=== PATIENT | male | born 1960 | race Hispanic/Latino ===

== ENCOUNTER 2019-12-30 16:21 | Inpatient (IN) | payer BC, OTHER ==
[~2019-12-30] VITALS: Ht 170.2 cm; Wt 89.1 kg
[2019-12-30] MEDS ORDERED: SODIUM CHLORIDE 0.9% 1000ML 1,000 ML IV STA (16:50)
[2019-12-30 17:08] LABS: BASOPHILS % 0.2 % (0.0-1.0); HEMATOCRIT 41.8 % (38.2-49.6); HEMOGLOBIN 13.4 g/dL (14.0-18.0); LYMPHOCYTES # (AUTO) 1.2 (1.0-3.2); LYMPHOCYTES % 7.5 % (18.0-39.1); MEAN CORPUSCULAR HEMOGLOBIN 28.8 pg (28-32); MEAN CORPUSCULAR HGB CONC 32.1 g/dL (31-35); MEAN CORPUSCULAR VOLUME 89.9 fL (81-99); MONOCYTES # (AUTO) 1.2 (0.2-0.8); MONOCYTES % 7.5 % (4.4-11.3); NEUTROPHILS % 82.3 % (38.7-80.0); PLATELET COUNT 524 x10e3/uL (140-360); RED BLOOD COUNT 4.65 x10e6/uL (4.3-5.7); RED CELL DISTRIBUTION WIDTH 12.9 % (11.7-14.4)
[2019-12-30 17:20] LABS: INR 0.93
[2019-12-30 17:21] LABS: PARTIAL THROMBOPLASTIN TIME 28.9 seconds (23.8-35.5)
[2019-12-30 17:28] LABS: ALANINE AMINOTRANSFERASE 129 IU/L (0-55); ALBUMIN 2.8 g/dL (3.5-5.0); ALBUMIN/GLOBULIN RATIO 0.6 (0.8-2.0); ALKALINE PHOSPHATASE 136 IU/L (40-150); BLOOD UREA NITROGEN 22 mg/dL (7-26); BUN/CREATININE RATIO 30 (6-25); CARBON DIOXIDE 22 mmol/L (22-29); CHLORIDE 106 mmol/L (98-107); CREATINE KINASE 93 IU/L (30-200); CREATININE, SERUM 0.73 mg/dL (0.72-1.25); EST GLOMERULAR FILTRATION RATE > 60 ML/MIN (60-); GLUCOSE 117 mg/dL (74-118); SODIUM 140 mmol/L (136-145)
--- NOTE | 2019-12-30 18:19 | Diagnostic Imaging Report ---
EXAMINATION: CHEST SINGLE (PORTABLE) INDICATION: sob, cough, hypoxia COMPARISON: None FINDINGS: AP view TUBES and LINES: None. LUNGS/PLEURA: Lungs are well inflated. There are bilateral patchy opacities likely representing multifocal pneumonia. There is no pleural effusion or pneumothorax. HEART AND MEDIASTINUM: The cardiomediastinal silhouette is unremarkable. BONES AND SOFT TISSUES: No acute osseous lesion. Soft tissues are unremarkable. UPPER ABDOMEN: No free air under the diaphragm. IMPRESSION: Bilateral patchy opacities likely representing multifocal pneumonia. Signed by: Preet Winter MD on 12/30/2019 6:15 PM
[2019-12-30] MEDS: CEFTRIAXONE SOD 1 GM/NS 50 ML 50 ML IV SCH (20:01)
[2019-12-30] MEDS ORDERED: SODIUM CHLORIDE 0.9% 1000ML 1,000 ML ONE (20:11)
[2019-12-30] MEDS: AZITHROMYCIN 500MG/NS 250 ML 250 ML IV SCH (20:15)
--- NOTE | 2019-12-30 20:56 | Emergency Department Note ---
History of Present Illnes History of Present Illness Chief Complaint: COVID PUI History of Present Illness This is a 59 year old male N FROM HOME WITH COMPLAINTS OF SHORTNESS OF BREATH AND CHEST PAIN X 6 DAYS; PATIENT RATES PAIN 5/10, APPEARS IN NO DISTRESS, O2 SATS 84% ON ROOM AIR. HAD COVID TEST AT PCP OFFICE RECEIVED POSITIVE RESULT ON WEDNESDAY. Historian: Patient Arrival Mode: Car Onset (how long ago): day(s) (7) Location: CHEST Quality: COUGH, CHEST PAIN Radiation: Reports non-radiation Severity: moderate Onset quality: gradual Duration (how long): day(s) (6) Progression: worsening Chronicity: new Context: Reports recent illness (COVID 19) Relieving factors: none Exacerbating factors: movement, other (COUGH) Associated symptoms: Reports chest pain, Reports cough, Reports fever/chills Treatments prior to arrival: none Past Medical/Family History Physician Review I have reviewed the patient's past medical and family history. Any updates have been documented here. Past Medical History Recent Fever: No Clinical Suspicion of Infectio: Yes New/Unexplained Change in Ment: No Past Medical History: None, Hypertension, Hyperlipedemia Past Surgical History: Hip Replacement Social History Smoking Cessation: Former smoker Counseling Performed: No Alcohol Use: None Any Illegal Drug Use: No Physically hurt or threatened: No Other Any Pre-Existing Lines (PICC,: No Review of Systems Review of Systems Constitutional: Reports no symptoms EENTM: Reports no symptoms Cardiovascular: Reports as per HPI Respiratory: Reports as per HPI Gastrointestinal: Reports no symptoms Genitourinary: Reports no symptoms Musculoskeletal: Reports no symptoms Integumentary: Reports no symptoms Neurological: Reports no symptoms Psychological: Reports no symptoms Endocrine: Reports no symptoms Hematological/Lymphatic: Reports no symptoms Physical Exam Related Data Allergies: Coded Allergies: No Known Allergies (Unverified , 12/30/19) Triage Vital Signs Vital Signs Date Time Temp Pulse Resp B/P (MAP) Pulse Ox O2 Delivery O2 Flow Rate FiO2 12/30/19 16:36 98.3 78 24 133/73 84 Room Air 12/30/19 17:00 4.0 Vital signs reviewed: Yes Physical Exam CONSTITUTIONAL Constitutional: Present well-developed, Present well-nourished, Present distressed (MILD RESPIRATORY DISTRESS, T[place]A RR 29) HENT HENT: Present normocephalic, Present atraumatic, Present oropharynx clear/moist, Present nose normal HENT L/R: Present left ext ear normal, Present right ext ear normal EYES Eyes: Reports PERRL, Reports conjunctivae normal NECK Neck: Present ROM normal PULMONARY Pulmonary: Present effort normal, Present rhonchi (THROUGHOUT) CARDIOVASCULAR Cardiovascular: Present regular rhythm, Present heart sounds normal, Present capillary refill normal, Present normal rate GASTROINTESTINAL Abdominal: Present soft, Present nontender, Present bowel sounds normal GENITOURINARY Genitourinary: Present exam deferred SKIN Skin: Present warm, Present dry MUSCULOSKELETAL Musculoskeletal: Present ROM normal NEUROLOGICAL Neurological: Present alert, Present oriented x 3, Present no gross motor or sensory deficits PSYCHOLOGICAL Psychological: Present mood/affect normal, Present judgement normal Results Laboratory Result Diagram: 12/30/19 1653 12/30/19 1653 Laboratory Laboratory Tests Test 12/30/19 20:04 12/30/19 16:53 White Blood Count 15.76 x10e3/uL (4.8-10.8) Red Blood Count 4.65 x10e6/uL (4.3-5.7) Hemoglobin 13.4 g/dL (14.0-18.0) Hematocrit 41.8 % (38.2-49.6) Mean Corpuscular Volume 89.9 fL (81-99) Mean Corpuscular Hemoglobin 28.8 pg (28-32) Mean Corpuscular Hemoglobin Concent 32.1 g/dL (31-35) Red Cell Distribution Width 12.9 % (11.7-14.4) Platelet Count 524 x10e3/uL (140-360) Neutrophils (%) (Auto) 82.3 % (38.7-80.0) Lymphocytes (%) (Auto) 7.5 % (18.0-39.1) Monocytes (%) (Auto) 7.5 % (4.4-11.3) Eosinophils (%) (Auto) 0.0 % (0.0-6.0) Basophils (%) (Auto) 0.2 % (0.0-1.0) Neutrophils # (Auto) 13.0 (2.1-6.9) Lymphocytes # (Auto) 1.2 (1.0-3.2) Monocytes # (Auto) 1.2 (0.2-0.8) Eosinophils # (Auto) 0.0 (0.0-0.4) Basophils # (Auto) 0.0 (0.0-0.1) Absolute Immature Granulocyte (auto 0.39 x10e3/uL (0-0.1) Prothrombin Time 13.0 seconds (11.9-14.5) Prothromb Time International Ratio 0.93 Activated Partial Thromboplast Time 28.9 seconds (23.8-35.5) Sodium Level 140 mmol/L (136-145) Potassium Level 4.0 mmol/L (3.5-5.1) Chloride Level 106 mmol/L (98-107) Carbon Dioxide Level 22 mmol/L (22-29) Anion Gap 16.0 mmol/L (8-16) Blood Urea Nitrogen 22 mg/dL (7-26) Creatinine 0.73 mg/dL (0.72-1.25) Estimat Glomerular Filtration Rate > 60 ML/MIN (60-) BUN/Creatinine Ratio 30 (6-25) Glucose Level 117 mg/dL (74-118) Calcium Level 9.0 mg/dL (8.4-10.2) Total Bilirubin 0.5 mg/dL (0.2-1.2) Aspartate Amino Transf (AST/SGOT) 47 IU/L (5-34) Alanine Aminotransferase (ALT/SGPT) 129 IU/L (0-55) Alkaline Phosphatase 136 IU/L (40-150) Creatine Kinase 93 IU/L (30-200) Creatine Kinase MB 1.10 ng/mL (0-5.0) Troponin I < 0.001 ng/mL (0-0.300) B-Type Natriuretic Peptide 76.0 pg/mL (0-100) Total Protein 7.5 g/dL (6.5-8.1) Albumin 2.8 g/dL (3.5-5.0) Globulin 4.7 g/dL (2.3-3.5) Albumin/Globulin Ratio 0.6 (0.8-2.0) Lab results reviewed: Yes Imaging Imaging results reviewed: Yes Impressions Procedure: [id number] DX/CHEST SINGLE (PORTABLE) Exam Date: 12/30/19 Exam Time: 1740 REPORT STATUS: Signed EXAMINATION: CHEST SINGLE (PORTABLE) INDICATION: sob, cough, hypoxia COMPARISON: None FINDINGS: AP view TUBES and LINES: None. LUNGS/PLEURA: Lungs are well inflated. There are bilateral patchy opacities likely representing multifocal pneumonia. There is no pleural effusion or pneumothorax. HEART AND MEDIASTINUM: The cardiomediastinal silhouette is unremarkable. BONES AND SOFT TISSUES: No acute osseous lesion. Soft tissues are unremarkable. UPPER ABDOMEN: No free air under the diaphragm. IMPRESSION: Bilateral patchy opacities likely representing multifocal pneumonia. Signed by: Preet Joaquin MD on 12/30/2019 6:15 PM Dictated By: PREET JOAQUIN MD 14 Transcribed By: ABIOLA on 12/30/191814 COPY TO: VENKATA BIGGS MD~ Procedures 12 Lead ECG Interpretation ECG Interpretation : ECG: ECG 1 Produce Sorter: Interpreted by ED physician Date: Dec 30, 2019 Time: 19:01 Rhythm: sinus rhythm Rate: normal BPM: 82 QRS axis: normal ST segments normal: Yes T waves normal: Yes Other findings: no other findings Clinical Impression: normal ECG Assessment & Plan Medical Decision Making MDM PT WITH OUTPT POSITIVE COVID 19 TEST WITH SOB AND OXYGEN SATURATION OF 85% ON ROOM, PLACED ON 6 LPM VIA NC AND O2 SATS INCREASES TP 95% CBC, CMP, CXR, CARDIAC ENZYMES. COVID, BLOOD CULTURES ORDERED TO EVAL FOR ELECTROLYTE ABNORMALITY, MYOCARDIAL INFARCTION, VIRAL PNEUMONIA ROCEPHIN 1 GRAM IV ORDERED ZITHROMAX 500 MG IV ORDERED I SPOKE WITH DR MCKEON, DR LOPEZ, DR MCLEOD,ADMIT PT TO INPATIENT FLOOR COVID UNIT Assessment & Plan Final Impression: (1) COVID-19 (2) Viral pneumonia (3) Hypoxemia requiring supplemental oxygen Depart Disposition: ADMITTED Last Vital Signs Date Time Temp Pulse Resp B/P (MAP) Pulse Ox O2 Delivery O2 Flow Rate FiO2 12/30/19 20:00 56 29 137/82 96 12/30/19 17:00 4.0 12/30/19 16:36 98.3 Room Air Medications in the ED Sodium Chloride 1,000 ml @ 0 mls/hr Q0M STAT IV Last administered on 12/30/19at 20:15; Admin Dose 999 MLS/HR; Start 12/30/19 at 16:50; Stop 12/30/19 at 16:53; Status DC Ceftriaxone Sodium 50 ml @ 100 mls/hr Q24H IV Last administered on 12/30/19at 20:01; Admin Dose 100 MLS/HR; Start 12/30/19 at 18:00; Stop 01/06/20 at 17:59 Azithromycin 250 ml @ 200 mls/hr Q24H IV Last administered on 12/30/19at 20:15; Admin Dose 200 MLS/HR; Start 12/30/19 at 17:00; Stop 01/06/20 at 16:59 Sodium Chloride 1,000 ml @ STK-MED ONCE .ROUTE ; Start 12/30/19 at 20:11; Stop 12/30/19 at 20:05; Status DC JOSE LAURENT MD Dec 30, 2019 20:56
[2019-12-30] MEDS ORDERED: AZITHROMYCIN 500MG/NS 250 ML 250 ML IV SCH (21:00)
[2019-12-30] MEDS ORDERED: ONDANSETRON HCL INJ 2MG/ML 2ML 2 MG/ML VIAL IV PRN (21:00)
[2019-12-30] MEDS ORDERED: DEXAMETHASONE SOD PHOS 10 MG/1 ML VIAL IV SCH (21:00)
[2019-12-30] MEDS ORDERED: CEFTRIAXONE SOD 1 GM/NS 50 ML 50 ML IV SCH (21:00)
[2019-12-30] MEDS ORDERED: ZOLPIDEM TARTRATE 5 MG TAB PO PRN (21:15)
[2019-12-30] MEDS ORDERED: GUAIFENESIN/CODEINE 10 ML CUP PO PRN (21:15)
[2019-12-30] MEDS ORDERED: HYDRALAZINE HCL 20 MG/ML VIAL IV PRN (21:30)
--- NOTE | 2019-12-30 21:38 | Consultation ---
DATE OF CONSULTATION: Pulmonary Critical Care Consultation CHIEF COMPLAINT: Cough, chest discomfort and dyspnea. HISTORY OF PRESENT ILLNESS: This is a 59-year-old man. He has a history of kidney stones in the past. About 7 to 10 detained days ago he noticed some flank pain and some blood in the urine. He went to see Dr. Julio Davis regarding his hematuria and had a COVID test that was positive. Over the past 5 or 6 days, he has developed worsening cough and congestion. He has noted some pain with inspiration as well as some fevers. PAST SURGICAL HISTORY: Hip surgery. PAST MEDICAL HISTORY: 1. Nephrolithiasis. 2. No prior asthma or respiratory problems. 3. No prior heart problems. SOCIAL HISTORY: The patient is not a smoker. He was a smoker about 30 or 40 years ago. He is not an active drinker. ALLERGIES: NO KNOWN DRUG ALLERGIES. REVIEW OF SYSTEMS: The patient has some fevers. He has no headache. He has no neck pain. He is not complaining of any chest pain. He does have some pain with inspiration. He notes a cough. He has some dyspnea. He has pain on the right flank area that has resolved. He has no abdominal pain. He has no nausea or vomiting. He has no leg edema. PHYSICAL EXAMINATION: VITAL SIGNS: The patient is afebrile. The blood pressure is 137/82, saturation is 96%. HEENT: Shows no facial swelling or erythema. LYMPHATIC: Shows no submandibular, cervical or supraclavicular adenopathy. CARDIAC: Reveals regular rate and rhythm with normal S1 and S2. LUNGS: Auscultation of lungs reveals rhonchorous breath sounds bilaterally. There is no wheezing. ABDOMEN: Soft, nontender. There is no rebound or guarding. EXTREMITIES: Shows no leg edema or calf tenderness. There is no cyanosis or clubbing. SKIN: Shows no rashes. NEUROLOGIC: Shows no focal abnormalities. LABORATORY DATA: White blood cell count 15.7, hemoglobin is 13.4. The platelet count is 524. BUN to creatinine ratio is normal. Other electrolytes are within normal limits. RADIOGRAPHIC DATA: Chest x-ray shows bilateral patchy infiltrates. IMPRESSION: 1. Viral pneumonia and coronavirus disease-19 infection. 2. Nephrolithiasis. PLAN: 1. Dexamethasone daily for 10 days. 2. Zithromax and Rocephin. 3. Urology consultation for nephrolithiasis. 4. Oxygen. 5. Judicious use of IV fluids. MD VIOLA Huitron/SEAN /[id number]
[2019-12-30 21:52] LABS: CLARITY,URINE CLEAR (CLEAR); COLOR,URINE YELLOW (YELLOW)
[2019-12-30 21:53] LABS: BILIRUBIN,URINE NEGATIVE (NEGATIVE); KETONES,URINE NEGATIVE (NEGATIVE); LEUKOCYTE ESTERASE ,URINE NEGATIVE (NEGATIVE); NITRITE,URINE NEGATIVE (NEGATIVE); PROTEIN,URINE DIPSTICK NEGATIVE (NEGATIVE); URINE UROBILINOGEN 0.2 mg/dL (0.2 - 1)
[2019-12-30 21:54] LABS: BACTERIA,URINE RARE /HPF; EPITHELIAL CELLS,URINE FEW /LPF; RBC,URINE 0-5 /HPF (0-5); WBC,URINE (MAN) 0-5 /HPF (0-5)
[2019-12-30 22:52] VITALS: BP 147/80
--- NOTE | 2019-12-30 23:50 | NUR ---
Patient received via stretcher from ER. AAO x 3. Patient had no complaints of pain. Respirations even and non-labored on 5L NC. Admission history obtained. Initial physical assessment performed. Patient oriented to room, call light and plan of care. Safety measures in place. Patient instructed to call for assistance when needed. Call light within reach.
[2019-12-31] VITALS (8 sets, daily range): BP systolic 113–147; BP diastolic 58–81
[2019-12-31] MEDS ORDERED: CRESTOR10 MG PO (00:24)
[2019-12-31] MEDS ORDERED: DIOVAN160 MG PO (00:24)
--- NOTE | 2019-12-31 01:42 | NUR ---
Blood specimen sent to lab for analysis of cardiac enzymes.
[2019-12-31 02:43] LABS: CREATINE KINASE MB 0.7 ng/mL (0-5.0)
[2019-12-31 05:26] LABS: BASOPHILS % 0.2 % (0.0-1.0); HEMATOCRIT 38.3 % (38.2-49.6); HEMOGLOBIN 12.3 g/dL (14.0-18.0); LYMPHOCYTES # (AUTO) 1.5 (1.0-3.2); LYMPHOCYTES % 10.7 % (18.0-39.1); MEAN CORPUSCULAR HEMOGLOBIN 28.9 pg (28-32); MEAN CORPUSCULAR HGB CONC 32.1 g/dL (31-35); MEAN CORPUSCULAR VOLUME 89.9 fL (81-99); MONOCYTES # (AUTO) 0.9 (0.2-0.8); MONOCYTES % 6.7 % (4.4-11.3); NEUTROPHILS # (AUTO) 11.3 (2.1-6.9); NEUTROPHILS % 80.8 % (38.7-80.0); PLATELET COUNT 423 x10e3/uL (140-360); RED BLOOD COUNT 4.26 x10e6/uL (4.3-5.7); RED CELL DISTRIBUTION WIDTH 12.8 % (11.7-14.4)
[2019-12-31 06:29] LABS: ALANINE AMINOTRANSFERASE 99 IU/L (0-55); ALBUMIN 2.5 g/dL (3.5-5.0); ALBUMIN/GLOBULIN RATIO 0.7 (0.8-2.0); ALKALINE PHOSPHATASE 114 IU/L (40-150); ANION GAP 11.9 mmol/L (8-16); BLOOD UREA NITROGEN 22 mg/dL (7-26); BUN/CREATININE RATIO 29 (6-25); CALCIUM 8.3 mg/dL (8.4-10.2); CARBON DIOXIDE 22 mmol/L (22-29); CHLORIDE 109 mmol/L (98-107); CREATININE, SERUM 0.76 mg/dL (0.72-1.25); EST GLOMERULAR FILTRATION RATE > 60 ML/MIN (60-); GLUCOSE 78 mg/dL (74-118); POTASSIUM 3.9 mmol/L (3.5-5.1); SODIUM 139 mmol/L (136-145)
--- NOTE | 2019-12-31 06:36 | NUR ---
Dr. Ahn paged regarding "Routine Consult'. Spoke to Marie . Awaiting call back.
--- NOTE | 2019-12-31 06:37 | NUR ---
Dr. Dana Del Rio paged regarding "Routine Consult". Reason: Nephrolithiasis. Awaiting calll back.
--- NOTE | 2019-12-31 06:53 | NUR ---
Walking rounds done. Patient resting comfortably. Shift report given to oncoming nurse.
--- NOTE | 2019-12-31 07:00 | NUR ---
change of shift report received from PM nurse. pt resting comfortably, no s/s distress. will continue to monitor.
[2019-12-31 07:28] LABS: CREATINE KINASE MB 0.6 ng/mL (0-5.0)
[2019-12-31] MEDS: ASCORBIC ACID 500 MG TAB PO SCH ×2 (09:30→16:07)
[2019-12-31] MEDS: ZINC SULFATE 220 MG CAP PO SCH ×2 (09:30→16:07)
[2019-12-31] MEDS: CHOLECALCIFEROL 400 UNIT TAB PO SCH (09:30)
[2019-12-31] MEDS: ENOXAPARIN INJ 80 MG/0.8 ML SYR SC SCH ×2 (09:30→16:07)
[2019-12-31] MEDS ORDERED: ACETAMINOPHEN/CODEINE 300MG - 30MG TAB PO PRN (10:15)
[2019-12-31] MEDS: VALSARTAN 80 MG TAB PO SCH (12:01)
[2019-12-31] MEDS: BENZONATATE 100 MG CAP PO PRN ×2 (12:02→21:00)
--- NOTE | 2019-12-31 12:15 | Consultation ---
DATE OF CONSULTATION: 12/31/2019 Urology Consultation REASON FOR CONSULTATION: Urolithiasis and hematuria. HISTORY OF PRESENT ILLNESS: Jay Jay Osborn is a 59-year-old man, who has had recurrent urolithiasis, usually passes the stones. The family is unaware at this time whether or not he seen a urologist in the past. The patient had gross hematuria and some malaise, and reported his primary care physician on 12/25/2019, he was evaluated, tests were done including the Coronavirus test. On 12/28/2019, the Coronavirus came positive. The patient had shortness of breath and chest pain, and was subsequently instructed to report to the emergency room for admission. He was admitted to the COVID morales. He has had cough. He has had malaise. He did have fevers, that seemed to have resolved at this point. His gross hematuria has also resolved. Denies any hematuria, dysuria, and urological pain at the present time. PAST MEDICAL AND SURGICAL HISTORY: 1. Hypertension. 2. Hyperlipidemia. 3. Status post right hip surgery. 4. Urolithiasis. 5. Obesity. FAMILY HISTORY: Noncontributory to the urological problems. The family history is positive for diabetes mellitus. SOCIAL HISTORY: The patient denies smoking and drug use. He drinks ethanol only very rarely and only on special occasions. 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 CURRENT MEDICATIONS: Please refer to the MAR. ALLERGIES: NONE KNOWN. REVIEW OF SYSTEMS: Discussed as above in history of present illness and past medical history, otherwise negative for all systems. PHYSICAL EXAMINATION: GENERAL: A pleasant 59-year-old male lying in bed, in no apparent distress. VITAL SIGNS: He is currently afebrile. Vitals are currently stable. ABDOMEN: Soft, nondistended, nontender without costovertebral tenderness. Kidneys not palpable without evidence of the splenomegaly. No obvious evidence of hernia. The patient is obese. GENITOURINARY: Testes descended bilaterally. Testes and epididymides bilaterally palpably normal. The patient has a normal uncircumcised male phallus with normal meatus without any lesion. Digital rectal examination is deferred at the present time. For the remaining physical examination systems, please refer to the admission history and physical on the chart. LABORATORY STUDIES: The patient's urinalysis significant for concentrated urine with specific gravity 1.030, was otherwise unremarkable. The patient's calcium is slightly low at 8.3. His creatinine is normal at 0.76. White blood cell count is elevated 14,020, hemoglobin is low at 12.3, and platelets are normal at 423,000. Current COVID test is positive. COVID test from December 24 was positive. There is no urological significant imaging present in the computer at this time. The patient has bilateral patchy opacities, representing multifocal pneumonia on his chest x-ray. ASSESSMENT: 1. Gross hematuria. 2. Leukocytosis. 3. Anemia. 4. Hypocalcemia. 5. History of recurrent urolithiasis. 6. Obesity. PLANS: 1. Treat the COVID. 2. Once the patient is COVID negative, we will pursue metabolic stone workup as well as an imaging stone workup to evaluate the patient for any stones and management on an ongoing basis. 3. Currently, the patient does not have hematuria. We will monitor for recurrence of that symptomatology. Thank you much for involving us in care of your patient. We will be happy to follow along with you as well as an outpatient. Ryan Del Rio MD [place]/MODL /[id number] cc: Julio Davis MD
[2019-12-31 15:38] LABS: CREATINE KINASE 56 IU/L (30-200)
--- NOTE | 2019-12-31 16:06 | Progress Note ---
DATE: SUBJECTIVE: The patient still has some dyspnea with exertion. He still has some congestion and cough. PHYSICAL EXAMINATION: VITAL SIGNS: Blood pressure is 126/73 and O2 saturation is 93% on 6 L. HEENT: Shows no facial swelling or erythema. CARDIAC: Reveals regular rate and rhythm with normal S1, S2. LUNGS: Auscultation of lungs revealed rhonchorous breath sounds bilaterally. There is no wheezing. ABDOMEN: Soft and nontender. There is no rebound or guarding. EXTREMITIES: Shows no leg edema or calf tenderness. There is no cyanosis or clubbing. SKIN: Shows no rashes. IMPRESSION: 1. Viral pneumonia and COVID-19 infection. 2. Nephrolithiasis. PLAN: 1. Complete antibiotics. 2. Complete dexamethasone. 3. Wean oxygen. Wilbur Barker MD [facility] /[id number]
[2019-12-31] MEDS: CEFTRIAXONE SOD 1 GM/NS 50 ML 50 ML IV SCH (16:07)
[2019-12-31] MEDS ORDERED: SODIUM CHLORIDE 0.9% 250ML 250 ML ONE (16:28)
--- NOTE | 2019-12-31 17:12 | NUR ---
received call from telemetry, pt's O2 sats 87%. Pt initially at 6L; increased to 8L. now satting 92% on 8L. will continue to monitor.
--- NOTE | 2019-12-31 18:23 | NUR ---
received call from Telemetry, pt's O2 sats 87%; pt changed to High-flow NC and put on 15L. O2 sats now 94%. will continue to monitor.
[2019-12-31] MEDS: AZITHROMYCIN 500MG/NS 250 ML 250 ML IV SCH (18:25)
[2019-12-31] MEDS: SIMVASTATIN 20 MG TAB PO SCH (21:36)
[2019-12-31] MEDS: DEXAMETHASONE SOD PHOS 10 MG/1 ML VIAL IV SCH (21:36)
[2020-01-01] VITALS (10 sets, daily range): BP systolic 105–120; BP diastolic 65–82
[2020-01-01] MEDS: ACETAMINOPHEN 325 MG TAB PO PRN ×2 (00:30→16:43)
[2020-01-01 05:39] LABS: BASOPHILS % 0.2 % (0.0-1.0); HEMATOCRIT 38.8 % (38.2-49.6); HEMOGLOBIN 12.5 g/dL (14.0-18.0); LYMPHOCYTES # (AUTO) 0.9 (1.0-3.2); LYMPHOCYTES % 7.1 % (18.0-39.1); MEAN CORPUSCULAR HEMOGLOBIN 28.8 pg (28-32); MEAN CORPUSCULAR HGB CONC 32.2 g/dL (31-35); MEAN CORPUSCULAR VOLUME 89.4 fL (81-99); MONOCYTES # (AUTO) 0.6 (0.2-0.8); MONOCYTES % 4.4 % (4.4-11.3); NEUTROPHILS # (AUTO) 11.1 (2.1-6.9); NEUTROPHILS % 86.7 % (38.7-80.0); PLATELET COUNT 423 x10e3/uL (140-360); RED BLOOD COUNT 4.34 x10e6/uL (4.3-5.7); RED CELL DISTRIBUTION WIDTH 12.7 % (11.7-14.4)
[2020-01-01 06:17] LABS: ALANINE AMINOTRANSFERASE 66 IU/L (0-55); ALBUMIN 2.3 g/dL (3.5-5.0); ALBUMIN/GLOBULIN RATIO 0.5 (0.8-2.0); ALKALINE PHOSPHATASE 103 IU/L (40-150); ANION GAP 11.3 mmol/L (8-16); BLOOD UREA NITROGEN 19 mg/dL (7-26); BUN/CREATININE RATIO 25 (6-25); CALCIUM 8.6 mg/dL (8.4-10.2); CARBON DIOXIDE 23 mmol/L (22-29); CHLORIDE 107 mmol/L (98-107); CREATININE, SERUM 0.77 mg/dL (0.72-1.25); EST GLOMERULAR FILTRATION RATE > 60 ML/MIN (60-); GLUCOSE 105 mg/dL (74-118); POTASSIUM 4.3 mmol/L (3.5-5.1); SODIUM 137 mmol/L (136-145)
--- NOTE | 2020-01-01 07:22 | NUR ---
infectious disease progress note Late entry is 12/31/2019 Patient seen and examined chart reviewed please refer to weigh orders in chart. Discussed with the medical team he patient still has some dyspnea with exertion. He still has some congestion and cough. PHYSICAL EXAMINATION: VITAL SIGNS: Blood pressure is 126/73 and O2 saturation is 93% on 6 L. HEENT: Shows no facial swelling or erythema. CARDIAC: Reveals regular rate and rhythm with normal S1, S2. LUNGS: Auscultation of lungs revealed rhonchorous breath sounds bilaterally. There is no wheezing. ABDOMEN: Soft and nontender. There is no rebound or guarding. EXTREMITIES: Shows no leg edema or calf tenderness. There is no cyanosis or clubbing. SKIN: Shows no rashes. IMPRESSION: 1. Viral pneumonia and COVID-19 infection. 2. Nephrolithiasis. PLAN: Continue as ordered D supportive care
[2020-01-01] MEDS: ENOXAPARIN INJ 80 MG/0.8 ML SYR SC SCH (08:23)
[2020-01-01] MEDS: ASCORBIC ACID 500 MG TAB PO SCH ×2 (08:23→16:16)
[2020-01-01] MEDS: VALSARTAN 80 MG TAB PO SCH (08:23)
[2020-01-01] MEDS: CHOLECALCIFEROL 400 UNIT TAB PO SCH (08:23)
[2020-01-01] MEDS: ZINC SULFATE 220 MG CAP PO SCH ×2 (08:23→16:16)
--- NOTE | 2020-01-01 14:05 | Progress Note ---
DATE: SUBJECTIVE: Mr. Osborn is doing well. PHYSICAL EXAMINATION: GENERAL: Currently alert. VITAL SIGNS: Stable, currently afebrile. HEENT: Not icteric. NECK: Supple. CHEST: Clear. IMPRESSION: COVID-19, nephrolithiasis, stable. He is on 15 L. Continue Decadron, to finish antibiotic as ordered. Continue Lovenox. Continue oxygen as ordered. MD SHAILESH Velasco/MODL /[id number]
[2020-01-01] MEDS: AZITHROMYCIN 500MG/NS 250 ML 250 ML IV SCH (16:16)
--- NOTE | 2020-01-01 16:16 | Progress Note ---
DATE: SUBJECTIVE: Mr. Osborn is doing well. There are no new complaints. PHYSICAL EXAMINATION: GENERAL: Currently alert. VITAL SIGNS: Stable, currently afebrile. The patient is currently on 15 L still. HEENT: He is not icteric. NECK: Supple. CHEST: Clear. IMPRESSION: Coronavirus disease 2019, respiratory failure, nephrolithiasis. Continue oxygen as ordered. Continue Lovenox, Zocor, dexamethasone, azithromycin for 3 days, Rocephin for 5 days. We will follow. MD SHAILESH Velasco/MODL /[id number]
[2020-01-01] MEDS: BENZONATATE 100 MG CAP PO PRN (16:43)
--- NOTE | 2020-01-01 17:24 | NUR ---
Physical therapy screen completed, patient is able to ambulate inside room with out assistance, able to perform bed mobility and transfers with out assistance.Skilled physical therapy services not indicated at this time. Thank you Addendum: 01/01/20 at 1726 by Mu lopez PT Amended: Links added.
[2020-01-01] MEDS: CEFTRIAXONE SOD 1 GM/NS 50 ML 50 ML IV SCH (17:27)
[2020-01-01] MEDS: SIMVASTATIN 20 MG TAB PO SCH (20:22)
[2020-01-01] MEDS: DEXAMETHASONE SOD PHOS 10 MG/1 ML VIAL IV SCH (20:22)
[2020-01-01] MEDS: ENOXAPARIN 30 MG/0.3 ML SYR SC SCH (20:22)
[2020-01-01] MEDS ORDERED: ENOXAPARIN INJ 80 MG/0.8 ML SYR SC SCH (21:00)
[2020-01-02] VITALS (7 sets, daily range): BP systolic 101–112; BP diastolic 62–76
[2020-01-02 05:49] LABS: BASOPHILS % 0.1 % (0.0-1.0); HEMATOCRIT 36.4 % (38.2-49.6); HEMOGLOBIN 12.6 g/dL (14.0-18.0); LYMPHOCYTES # (AUTO) 0.6 (1.0-3.2); LYMPHOCYTES % 5.2 % (18.0-39.1); MEAN CORPUSCULAR HEMOGLOBIN 32.6 pg (28-32); MEAN CORPUSCULAR HGB CONC 34.6 g/dL (31-35); MEAN CORPUSCULAR VOLUME 94.3 fL (81-99); MONOCYTES # (AUTO) 0.3 (0.2-0.8); MONOCYTES % 2.3 % (4.4-11.3); NEUTROPHILS # (AUTO) 9.6 (2.1-6.9); NEUTROPHILS % 90.2 % (38.7-80.0); PLATELET COUNT 325 x10e3/uL (140-360); RED BLOOD COUNT 3.86 x10e6/uL (4.3-5.7); RED CELL DISTRIBUTION WIDTH 15.1 % (11.7-14.4)
[2020-01-02 06:17] LABS: ALANINE AMINOTRANSFERASE 54 IU/L (0-55); ALBUMIN 2.3 g/dL (3.5-5.0); ALBUMIN/GLOBULIN RATIO 0.5 (0.8-2.0); ALKALINE PHOSPHATASE 88 IU/L (40-150); ANION GAP 14.7 mmol/L (8-16); BLOOD UREA NITROGEN 23 mg/dL (7-26); BUN/CREATININE RATIO 30 (6-25); CALCIUM 8.9 mg/dL (8.4-10.2); CARBON DIOXIDE 22 mmol/L (22-29); CHLORIDE 106 mmol/L (98-107); CREATININE, SERUM 0.76 mg/dL (0.72-1.25); EST GLOMERULAR FILTRATION RATE > 60 ML/MIN (60-); GLUCOSE 130 mg/dL (74-118); POTASSIUM 4.7 mmol/L (3.5-5.1); SODIUM 138 mmol/L (136-145)
--- NOTE | 2020-01-02 07:44 | Diagnostic Imaging Report ---
EXAMINATION: CHEST SINGLE (PORTABLE) INDICATION: COVID COMPARISON: Chest radiograph 12-30-2019. FINDINGS: AP view TUBES and LINES: None. LUNGS/PLEURA: Lungs are well inflated. There are increasing bilateral peripheral predominant patchy airspace opacities. There is no pleural effusion or pneumothorax. HEART AND MEDIASTINUM: The cardiomediastinal silhouette is unremarkable. BONES AND SOFT TISSUES: No acute osseous lesion. Soft tissues are unremarkable. UPPER ABDOMEN: No free air under the diaphragm. IMPRESSION: Increasing bilateral patchy opacities, compatible with viral pneumonia. Signed by: Dr. Jennie De Leon MD on 01/02/2020 7:40 AM
[2020-01-02 08:58] LABS: ANISOCYTOSIS SLIGHT; LYMPHOCYTES % (MANUAL) 10 % (19-48); MONOCYTES % (MANUAL) 3 % (3.4-9.0); MYELOCYTES % (MANUAL) 2 % (0-0); NEUTROPHILS % (MANUAL) 85 % (40-74); PLATELET ESTIMATE ADEQUATE; PLATELET MORPHOLOGY COMMENT NORMAL; RBC MORPHOLOGY COMMENT NORMAL
[2020-01-02] MEDS: ZINC SULFATE 220 MG CAP PO SCH ×2 (09:04→16:20)
[2020-01-02] MEDS: ASCORBIC ACID 500 MG TAB PO SCH ×2 (09:04→16:20)
[2020-01-02] MEDS: VALSARTAN 80 MG TAB PO SCH (09:04)
[2020-01-02] MEDS: ENOXAPARIN 30 MG/0.3 ML SYR SC SCH ×2 (09:04→19:50)
[2020-01-02] MEDS: CHOLECALCIFEROL 400 UNIT TAB PO SCH (09:04)
--- NOTE | 2020-01-02 16:02 | NUR ---
patient was sick for 10 days before hecame here now is better discussed with kamla had positive test week ago cont isolation 20 days
[2020-01-02] MEDS: AZITHROMYCIN 500MG/NS 250 ML 250 ML IV SCH (16:20)
[2020-01-02] MEDS: CEFTRIAXONE SOD 1 GM/NS 50 ML 50 ML IV SCH (18:06)
--- NOTE | 2020-01-02 18:52 | Progress Note ---
DATE: SUBJECTIVE: Mr. Osborn has PCR on the came back negative. He is currently doing well. PHYSICAL EXAMINATION: GENERAL: He is currently alert. VITAL SIGNS: Stable. Currently afebrile. He is currently on 10 L. HEENT: He is not icteric. NECK: Supple. CHEST: Clear. HEART: S1, S2. No murmur. ABDOMEN: Soft. MEDICATIONS: He is currently on Lovenox, vitamin D, vitamin C, zinc, dexamethasone, ceftriaxone, azithromycin. PHYSICAL EXAMINATION: GENERAL: He is currently alert, oriented. VITAL SIGNS: Stable, currently afebrile. HEENT: Not icteric. NECK: Supple. CHEST: Clear bilaterally. HEART: S1, S2. ABDOMEN: Soft, bowel sounds present. EXTREMITIES: No edema. SKIN: No rash. IMPRESSION: Respiratory failure, very suspicious for coronavirus disease-19, but if this came back negative continue with isolation as ordered. Continue treatment as ordered. Clinically improving. We will discuss with the family. MD SHAILESH Velasco/MODL /[id number]
[2020-01-02] MEDS: DEXAMETHASONE SOD PHOS 10 MG/1 ML VIAL IV SCH (19:50)
[2020-01-02] MEDS: SIMVASTATIN 20 MG TAB PO SCH (19:50)
[2020-01-02] MEDS: SODIUM CHLORIDE FLUSH 10 ML SYR INJ PRN (20:03)
[2020-01-02] MEDS: BENZONATATE 100 MG CAP PO PRN (21:59)
--- NOTE | 2020-01-02 22:08 | Progress Note ---
DATE: 01/02/2020 CONSULTING PHYSICIANS: 1. Dr. Brian Ahn with Infectious Disease. 2. Dr. Ryan Del Rio with Urology. 3. Dr. Wilbur Barker with Pulmonology. SUBJECTIVE: The patient is lying supine in bed. Still has cough, shortness of breath, dyspnea on exertion. Denies any nausea, vomiting, diarrhea, or constipation. OBJECTIVE: VITAL SIGNS: Temperature 97.9, heart rate 80, blood pressure 110/73, respirations 22, and oxygen saturation 100%. GENERAL: No acute distress. LUNGS: With bibasilar crackles. High-flow oxygen at 5 L/minute via humidified nasal cannula along with 100% FiO2 via non-rebreather mask. HEENT: EOMI. NECK: Supple. CARDIOVASCULAR: Regular rate and rhythm. No murmur. ABDOMEN: Bowel sounds positive. Soft and nontender. EXTREMITIES: Without pitting edema. No clubbing, cyanosis, or marked swelling. NEUROLOGICAL: GCS 15. Nonfocal. LABORATORY DATA: WBC is 10.6, hemoglobin 12.6, hematocrit 36.4, and platelets 325. Sodium 138, potassium 4.7, chloride 106, CO2 22, BUN 23, creatinine 0.76, estimated GFR greater than 60, glucose 130, and calcium 8.9. Total bilirubin 0.6, AST 22, ALT 54, and alkaline phosphatase 88. Total protein 6.9 and albumin 2.3. Coronavirus PCR collected 12/31, remains pending. Blood cultures x2 collected 12/29, show no growth after 72 hours. Chest x-ray done 01/01, shows increasing bilateral patchy opacities compatible with viral pneumonia. ASSESSMENT AND PLAN: 1. COVID-19 pneumonia with acute respiratory distress syndrome, POA. Continue azithromycin, Rocephin, Lovenox, zinc, vitamin C, vitamin D, guaifenesin with codeine, and Tessalon Perles. 2. Hypertension, controlled. Continue same. Blood pressure 110/73. Monitor. 3. Transaminitis secondary to #1. Currently LFTs within normal limits. Monitor. 4. Hyperlipidemia. Zocor. 5. Prophylaxis. Lovenox. We will add Pepcid. 6. Billing code 70643. Time spent 35 minutes. Dictated by Giovanni Zaragoza, JOELLE MD ISIDRO Castillo/SEAN /[id number]
[2020-01-03] VITALS (10 sets, daily range): BP systolic 105–132; BP diastolic 58–79
[2020-01-03] MEDS: SODIUM CHLORIDE FLUSH 10 ML SYR INJ PRN (05:00)
[2020-01-03 05:02] LABS: BASOPHILS % 0.2 % (0.0-1.0); HEMATOCRIT 39.5 % (38.2-49.6); HEMOGLOBIN 12.7 g/dL (14.0-18.0); LYMPHOCYTES # (AUTO) 0.6 (1.0-3.2); LYMPHOCYTES % 4.7 % (18.0-39.1); MEAN CORPUSCULAR HEMOGLOBIN 28.5 pg (28-32); MEAN CORPUSCULAR HGB CONC 32.2 g/dL (31-35); MEAN CORPUSCULAR VOLUME 88.8 fL (81-99); MONOCYTES # (AUTO) 0.4 (0.2-0.8); NEUTROPHILS % 90.3 % (38.7-80.0); PLATELET COUNT 523 x10e3/uL (140-360); RED BLOOD COUNT 4.45 x10e6/uL (4.3-5.7); RED CELL DISTRIBUTION WIDTH 12.6 % (11.7-14.4)
[2020-01-03 05:24] LABS: ALANINE AMINOTRANSFERASE 51 IU/L (0-55); ALBUMIN 2.3 g/dL (3.5-5.0); ALBUMIN/GLOBULIN RATIO 0.5 (0.8-2.0); ALKALINE PHOSPHATASE 87 IU/L (40-150); ANION GAP 13.5 mmol/L (8-16); BLOOD UREA NITROGEN 22 mg/dL (7-26); BUN/CREATININE RATIO 30 (6-25); CALCIUM 8.9 mg/dL (8.4-10.2); CARBON DIOXIDE 21 mmol/L (22-29); CHLORIDE 107 mmol/L (98-107); CREATININE, SERUM 0.73 mg/dL (0.72-1.25); EST GLOMERULAR FILTRATION RATE > 60 ML/MIN (60-); GLUCOSE 115 mg/dL (74-118); POTASSIUM 4.5 mmol/L (3.5-5.1); SODIUM 137 mmol/L (136-145)
--- NOTE | 2020-01-03 07:03 | NUR ---
REPORT GIVEN TO DAYSHIFT NURSE. ALERT AND RESTING IN BED. NO SIGNS IV INFILTRATION. BED LOCKED AND IN LOW POSITION. CALL LIGHT WITHIN REACH.
[2020-01-03] MEDS: ASCORBIC ACID 500 MG TAB PO SCH ×2 (07:53→16:28)
[2020-01-03] MEDS: CHOLECALCIFEROL 400 UNIT TAB PO SCH (07:53)
[2020-01-03] MEDS: FAMOTIDINE 20 MG TAB PO SCH ×2 (07:53→16:28)
[2020-01-03] MEDS: ZINC SULFATE 220 MG CAP PO SCH ×2 (07:53→16:28)
[2020-01-03] MEDS: ENOXAPARIN 30 MG/0.3 ML SYR SC SCH (07:53)
[2020-01-03] MEDS: VALSARTAN 80 MG TAB PO SCH (07:53)
[2020-01-03] MEDS: BENZONATATE 100 MG CAP PO PRN (07:53)
[2020-01-03] MEDS ORDERED: ALBUTEROL SULFATE HFA 8GM INHALATION AEROSOL INH PRN (12:15)
--- NOTE | 2020-01-03 12:57 | Progress Note ---
DATE: 01/03/2020 SUBJECTIVE: The patient still has shortness of breath with dyspnea on exertion. Chief complaint is cough. Denies nausea, vomiting, diarrhea, or constipation. OBJECTIVE: VITAL SIGNS: Temperature 97.3, heart rate 82, blood pressure 115/72, respirations 18, and oxygen saturation 94%. GENERAL: Supine, no acute distress. LUNGS: With bibasilar crackles. High-flow oxygen at 4 L/minute, humidified via nasal cannula along with non-rebreather mask. HEENT: EOMI. NECK: Supple. No JVD. CARDIOVASCULAR: Regular rate and rhythm without murmur. ABDOMEN: Bowel sounds positive. Soft, nontender. No guarding. EXTREMITIES: Without pitting edema. No clubbing, cyanosis, or marked swelling or signs of DVT. NEUROLOGICAL: GCS 15. Nonfocal. LABORATORY DATA: WBCs 13.29, hemoglobin 12.7, hematocrit 39.5, platelets 523, and neutrophils 90.3%. Sodium 137, potassium 4.5, chloride 107, CO2 of 21, anion gap 13.5, BUN 22, creatinine 0.73, estimated GFR greater than 60, glucose 115, calcium 8.9, total bilirubin 0.6, AST 15, ALT 51, alkaline phosphatase 87, total protein 6.8, and albumin 2.3. No new imaging studies. ASSESSMENT AND PLAN: 1. Coronavirus disease-19 pneumonia with acute respiratory distress syndrome, present on admission. Continue Rocephin, azithromycin, Lovenox, zinc, vitamin C, vitamin D, guaifenesin with codeine, and Tessalon Perles. I will add albuterol HFA as well as Mucinex DM for the patient's cough. 2. Controlled hypertension. Continue valsartan 160 mg daily along with IV p.r.n. hydralazine for systolic blood pressure greater than 150. 3. Transaminitis secondary to #1. Transaminitis, improved currently. LFTs are within normal limits. Monitor. 4. Hyperlipidemia. Zocor. 5. Prophylaxis. Lovenox and Pepcid. Billing code 79236. Time spent 35 minutes. Dictated by Giovanni Zaragoza NP Terry Lozoya MD [facility]/MODL /[id number]
[2020-01-03] MEDS: GUAIFENESIN 600MG/DEXTROMETHORPHAN 30MG TABSR PO SCH ×2 (13:36→21:19)
--- NOTE | 2020-01-03 14:08 | NUR ---
infectious disease progress note The patient who has been in the hospital for 4 days now Remains weak with shortness of breath and cough no new complaints All lab data review of chart reviewed The patient still has shortness of breath with dyspnea on exertion. Chief complaint is cough. Denies nausea, vomiting, diarrhea, or constipation. OBJECTIVE: VITAL SIGNS: Temperature 97.3, heart rate 82, blood pressure 115/72, respirations 18, and oxygen saturation 94%. GENERAL: Supine, no acute distress. LUNGS: With bibasilar crackles. High-flow oxygen at 4 L/minute, humidified via nasal cannula along with non-rebreather mask. HEENT: EOMI. NECK: Supple. No JVD. CARDIOVASCULAR: Regular rate and rhythm without murmur. ABDOMEN: Bowel sounds positive. Soft, nontender. No guarding. EXTREMITIES: Without pitting edema. No clubbing, cyanosis, or marked swelling or signs of DVT. NEUROLOGICAL: GCS 15. Nonfocal. LABORATORY DATA: WBCs 13.29, hemoglobin 12.7, hematocrit 39.5, platelets 523, and neutrophils 90.3%. Sodium 137, potassium 4.5, chloride 107, CO2 of 21, anion gap 13.5, BUN 22, creatinine 0.73, estimated GFR greater than 60, glucose 115, calcium 8.9, total bilirubin 0.6, AST 15, ALT 51, alkaline phosphatase 87, total protein 6.8, and albumin 2.3. No new imaging studies. ASSESSMENT AND PLAN: Scattered terminus at length to summarize Finished 5 days of Rocephin 3 days azithromycin Lovenox for the time being kind to continue with supplement is ordered Oxygen support as needed 1. Coronavirus disease-19 pneumonia with acute respiratory distress syndrome, present on admission. Continue Rocephin, azithromycin, Lovenox, zinc, vitamin C, vitamin D, guaifenesin with codeine, and Tessalon Perles. I will add albuterol HFA as well as Mucinex DM for the patient's cough. 2. Controlled hypertension. Continue valsartan 160 mg daily along with IV p.r.n. hydralazine for systolic blood pressure greater than 150. 3. Transaminitis secondary to #1. Transaminitis, improved currently. LFTs are within normal limits. Monitor. 4. Hyperlipidemia. Zocor. 5. Prophylaxis. Lovenox and Pepcid. Billing code [id number].
[2020-01-03] MEDS: CEFTRIAXONE SOD 1 GM/NS 50 ML 50 ML IV SCH (16:28)
[2020-01-03] MEDS: AZITHROMYCIN 500MG/NS 250 ML 250 ML IV SCH (16:28)
--- NOTE | 2020-01-03 19:46 | NUR ---
pt received. no ss of distress noted. no co pain at time. tele in place. o2 and non rebreather in place. will cont to follow poc. call antoine within reach.
--- NOTE | 2020-01-03 20:25 | NUR ---
spoke to dr debbie mcknight regarding pt 02 sat dropping. new orders received. supervisor tank house notified of icu status. x1 left wrist 20g successful. call antoine within reach.
[2020-01-03] MEDS ORDERED: LACTATED RINGER'S 500 ML INJ ONE (20:30)
[2020-01-03] MEDS: DEXAMETHASONE SOD PHOS 10 MG/1 ML VIAL IV SCH (21:18)
[2020-01-03] MEDS: ENOXAPARIN SOD INJ 40 MG/0.4 ML SYR SC SCH (21:19)
[2020-01-03] MEDS: SIMVASTATIN 20 MG TAB PO SCH (21:19)
--- NOTE | 2020-01-03 21:20 | NUR ---
spoke to both daughters endy and mark per pt request. family members notified of new rm number.
--- NOTE | 2020-01-03 21:34 | Progress Note ---
DATE: SUBJECTIVE: The patient has worsening oxygen saturations throughout today. He is now on 15 L as well as 100% non-rebreather superimposed over the 15 L. PHYSICAL EXAMINATION: VITAL SIGNS: The blood pressure is 110/64 and the pulse is 77, saturation is 92%. He is afebrile. HEENT: Shows no facial swelling or erythema. CARDIAC: Reveals a regular rate and rhythm with normal S1, S2. LUNGS: Auscultation of lungs reveals crackles at the bases. There is no wheezing. ABDOMEN: Soft and nontender. There is no rebound or guarding. EXTREMITIES: Shows no leg edema or calf tenderness. There is no cyanosis or clubbing. SKIN: Shows no rashes. NEUROLOGICAL: Shows no focal abnormalities. LABORATORY DATA: White blood cell count is 13.3 and hemoglobin is 12.7. The platelet count is 523. The BUN to creatinine ratio is normal. The carbon dioxide is 21. Albumin is 2.3. IMPRESSION: 1. Acute respiratory failure. 2. Viral pneumonia and COVID-19 infection. 3. Nephrolithiasis. 4. Hematuria. PLAN: 1. Transfer the patient to intensive care unit. 2. Initiate Vapotherm. 3. Continue Lovenox. 4. Continue dexamethasone. 5. Continue to monitor and control blood pressure. 6. Complete antibiotics. Wilbur Barker MD [facility]/MODL /[id number]
--- NOTE | 2020-01-03 22:00 | NUR ---
spoke to household manager. still awaiting icu transfer. 02 spot checked at time 94% on 15 lit nonrebreather and 15 lit nc. no distress noted. call antoine within reach.
--- NOTE | 2020-01-03 22:15 | NUR ---
report given to icu nurse at time.
--- NOTE | 2020-01-03 22:30 | NUR ---
pt transferred to icu rm 190 via bed. all belongings collected and sent with pt. nonrebreather in place at 15 liters with transfer. no distress noted with transfer. icu nurse at bedside. respiratory notified of transfer and Vapotherm orders.
[2020-01-04] VITALS (23 sets, daily range): BP systolic 84–123; BP diastolic 44–87
[2020-01-04] MEDS ORDERED: SODIUM CHLORIDE 0.9% 1000ML 1,000 ML ONE (01:42)
[2020-01-04 04:51] LABS: BASOPHILS % 0.1 % (0.0-1.0); EOSINOPHILS % 0.1 % (0.0-6.0); HEMATOCRIT 37.6 % (38.2-49.6); HEMOGLOBIN 12.1 g/dL (14.0-18.0); LYMPHOCYTES # (AUTO) 0.4 (1.0-3.2); LYMPHOCYTES % 3.8 % (18.0-39.1); MEAN CORPUSCULAR HEMOGLOBIN 28.9 pg (28-32); MEAN CORPUSCULAR HGB CONC 32.2 g/dL (31-35); MONOCYTES # (AUTO) 0.4 (0.2-0.8); MONOCYTES % 3.6 % (4.4-11.3); NEUTROPHILS # (AUTO) 10.1 (2.1-6.9); NEUTROPHILS % 91.2 % (38.7-80.0); PLATELET COUNT 459 x10e3/uL (140-360); RED BLOOD COUNT 4.18 x10e6/uL (4.3-5.7); RED CELL DISTRIBUTION WIDTH 12.5 % (11.7-14.4)
[2020-01-04 05:13] LABS: ALANINE AMINOTRANSFERASE 45 IU/L (0-55); ALBUMIN 2.3 g/dL (3.5-5.0); ALBUMIN/GLOBULIN RATIO 0.5 (0.8-2.0); ALKALINE PHOSPHATASE 80 IU/L (40-150); ANION GAP 15.1 mmol/L (8-16); BLOOD UREA NITROGEN 22 mg/dL (7-26); BUN/CREATININE RATIO 32 (6-25); CALCIUM 8.6 mg/dL (8.4-10.2); CARBON DIOXIDE 20 mmol/L (22-29); CHLORIDE 106 mmol/L (98-107); CREATININE, SERUM 0.68 mg/dL (0.72-1.25); EST GLOMERULAR FILTRATION RATE > 60 ML/MIN (60-); GLUCOSE 118 mg/dL (74-118); POTASSIUM 5.1 mmol/L (3.5-5.1); SODIUM 136 mmol/L (136-145)
--- NOTE | 2020-01-04 07:11 | Diagnostic Imaging Report ---
EXAMINATION: CHEST SINGLE (PORTABLE) INDICATION:resp failure COMPARISON: Chest radiograph 01-02-2020. FINDINGS: AP view TUBES and LINES: None. LUNGS/PLEURA: Lungs are well inflated. Bilateral peripheral and basilar predominant patchy airspace opacities, increasing on the right. There is no pleural effusion or pneumothorax. HEART AND MEDIASTINUM: The cardiomediastinal silhouette is unremarkable. BONES AND SOFT TISSUES: No acute osseous lesion. Soft tissues are unremarkable. UPPER ABDOMEN: No free air under the diaphragm. IMPRESSION: Bilateral airspace opacities, increasing on the right, compatible with viral pneumonia. Signed by: Dr. Jennie De Leon MD on 01/04/2020 7:07 AM
[2020-01-04] MEDS: FAMOTIDINE 20 MG TAB PO SCH ×2 (07:30→15:54)
[2020-01-04] MEDS: GUAIFENESIN 600MG/DEXTROMETHORPHAN 30MG TABSR PO SCH ×2 (09:26→20:57)
[2020-01-04] MEDS: ENOXAPARIN SOD INJ 40 MG/0.4 ML SYR SC SCH ×2 (09:26→20:57)
[2020-01-04] MEDS: ASCORBIC ACID 500 MG TAB PO SCH ×2 (09:26→15:55)
[2020-01-04] MEDS: ZINC SULFATE 220 MG CAP PO SCH ×2 (09:26→15:55)
[2020-01-04] MEDS: CHOLECALCIFEROL 400 UNIT TAB PO SCH (09:26)
--- NOTE | 2020-01-04 14:28 | Progress Note ---
DATE: SUBJECTIVE: The patient is now on Vapotherm at 40 L with 100%. He is saturating well on this. He has less tachypnea and less dyspnea. He is not complaining of abdominal pain. He has no chest pain. PHYSICAL EXAMINATION: VITAL SIGNS: The patient is afebrile. The blood pressure is 95/70 and the pulse is 75. Saturation is 96%. HEENT: Shows no facial swelling or erythema. LYMPHATIC: Shows no submandibular, cervical, or supraclavicular adenopathy. CARDIAC: Reveals regular rate and rhythm with normal S1 and S2. LUNGS: Auscultation of lungs reveals crackles at the bases. There is no wheezing. ABDOMEN: Soft and nontender. There is no rebound or guarding. EXTREMITIES: Shows no leg edema or calf tenderness. There is no cyanosis or clubbing. SKIN: Shows no rashes. LABORATORY DATA: White blood cell count is 11 and the hemoglobin is 12.1. The platelet count is 459. BUN to creatinine ratio is normal and other electrolytes are within normal limits. RADIOGRAPHIC DATA: Chest x-ray shows bilateral airspace opacities. IMPRESSION: 1. Acute respiratory failure. 2. Viral pneumonia and COVID-19 infection. 3. Nephrolithiasis. 4. Hematuria. PLAN: 1. Continue Vapotherm. 2. Continue Lovenox. 3. Dexamethasone. 4. Complete antibiotics. Wilbur Barker MD [facility] /[id number]
[2020-01-04] MEDS: VALSARTAN 80 MG TAB PO SCH (15:00)
--- NOTE | 2020-01-04 19:11 | Progress Note ---
DATE: SUBJECTIVE: Mr. Jay Jay Osborn remains in intensive care unit, this is day #5. He remains on Vapotherm at 40 with 100%, saturating well. PHYSICAL EXAMINATION: GENERAL: Currently as mentioned above, he is on respiratory support. VITAL SIGNS: Stable, afebrile. HEENT: He is not icteric. NECK: Supple. CHEST: Few crackles. HEART: S1, S2. ABDOMEN: Soft and nontender. Bowel sounds present. EXTREMITIES: No edema. SKIN: No rash White count 11. IMPRESSION: Respiratory failure, COVID-19, hematuria. He is on Lovenox, vitamin D, zinc, dexamethasone, azithromycin, and ceftriaxone, which we are going to stop today. MD SHAILESH Velasco/MODL /[id number]
[2020-01-04] MEDS: DEXAMETHASONE SOD PHOS 10 MG/1 ML VIAL IV SCH (20:57)
[2020-01-04] MEDS: SIMVASTATIN 20 MG TAB PO SCH (20:57)
[2020-01-05] VITALS (26 sets, daily range): BP systolic 90–116; BP diastolic 52–76
[2020-01-05 05:47] LABS: BASOPHILS % 0.1 % (0.0-1.0); EOSINOPHILS % 0.2 % (0.0-6.0); HEMATOCRIT 39.1 % (38.2-49.6); HEMOGLOBIN 12.6 g/dL (14.0-18.0); LYMPHOCYTES # (AUTO) 0.7 (1.0-3.2); LYMPHOCYTES % 6.1 % (18.0-39.1); MEAN CORPUSCULAR HEMOGLOBIN 29.9 pg (28-32); MEAN CORPUSCULAR HGB CONC 32.2 g/dL (31-35); MEAN CORPUSCULAR VOLUME 92.9 fL (81-99); MONOCYTES # (AUTO) 0.6 (0.2-0.8); MONOCYTES % 5.5 % (4.4-11.3); NEUTROPHILS # (AUTO) 9.3 (2.1-6.9); NEUTROPHILS % 86.9 % (38.7-80.0); PLATELET COUNT 432 x10e3/uL (140-360); RED BLOOD COUNT 4.21 x10e6/uL (4.3-5.7); RED CELL DISTRIBUTION WIDTH 12.7 % (11.7-14.4)
[2020-01-05 06:26] LABS: ALANINE AMINOTRANSFERASE 39 IU/L (0-55); ALBUMIN 2.5 g/dL (3.5-5.0); ALBUMIN/GLOBULIN RATIO 0.6 (0.8-2.0); ALKALINE PHOSPHATASE 80 IU/L (40-150); ANION GAP 14.4 mmol/L (8-16); BLOOD UREA NITROGEN 24 mg/dL (7-26); BUN/CREATININE RATIO 36 (6-25); CARBON DIOXIDE 23 mmol/L (22-29); CHLORIDE 104 mmol/L (98-107); CREATININE, SERUM 0.66 mg/dL (0.72-1.25); EST GLOMERULAR FILTRATION RATE > 60 ML/MIN (60-); GLUCOSE 99 mg/dL (74-118); POTASSIUM 4.4 mmol/L (3.5-5.1); SODIUM 137 mmol/L (136-145)
[2020-01-05] MEDS: FAMOTIDINE 20 MG TAB PO SCH ×2 (08:37→18:40)
[2020-01-05] MEDS: VALSARTAN 80 MG TAB PO SCH (08:38)
[2020-01-05] MEDS: CHOLECALCIFEROL 400 UNIT TAB PO SCH (08:38)
[2020-01-05] MEDS: ASCORBIC ACID 500 MG TAB PO SCH ×2 (08:38→18:40)
[2020-01-05] MEDS: ZINC SULFATE 220 MG CAP PO SCH ×2 (08:38→18:40)
[2020-01-05] MEDS: ENOXAPARIN SOD INJ 40 MG/0.4 ML SYR SC SCH ×2 (12:24→20:45)
--- NOTE | 2020-01-05 15:14 | Progress Note ---
DATE: SUBJECTIVE: The patient is still on Vapotherm. He is having less dyspnea and less cough. PHYSICAL EXAMINATION: VITAL SIGNS: The patient is afebrile. The blood pressure is 99/60, saturation is 98%. The pulse is 103. The respiratory rate is 32. HEENT: No facial swelling or erythema. CARDIAC: Regular rate and rhythm with normal S1, S2. LUNGS: Auscultation of lungs reveals rhonchorous breath sounds bilaterally. There is no wheezing. ABDOMEN: Soft, nontender. There is no rebound or guarding. EXTREMITIES: No leg edema or calf tenderness. There is no cyanosis or clubbing. SKIN: No rashes. NEUROLOGICAL: No focal abnormalities. LABORATORY DATA: The white blood cell count is 10.7 and hemoglobin is 12.6. The platelet count is 432. The BUN to creatinine ratio is normal. The other electrolytes are within normal limits. The albumin is 2.5. RADIOGRAPHIC DATA: Chest x-ray shows bilateral opacities. IMPRESSION: 1. Acute respiratory failure. 2. Viral pneumonia and coronavirus disease-19 infection. 3. Nephrolithiasis. 4. Hematuria. PLAN: 1. Continue Vapotherm. 2. Continue Lovenox. 3. Complete dexamethasone. 4. Complete antibiotics. MD VIOLA Huitron/SEAN /[id number]
--- NOTE | 2020-01-05 15:21 | NUR ---
Nutrition Screen Note RD Recommendation for Physician: -Continue current diet as ordered Plan of Care: RD following, monitoring for tolerance and adequacy Nutrition reason for involvement: length of stay Primary Diagnose(s): COVID-19, hypoxemia, and viral pneumonia PMH: Hypertension, Hyperlipidemia, right hip surgery, Urolithiasis, Obesity Ht: 67 in Wt:200 lb BMI: 31.3 kg/m2 IBW:[address] Assessment: (01/05/20) Chart reviewed. Labs and meds reviewed. Pt is a 59 year old male admitted with COVID-19, hypoxemia, and viral pneumonia. Unable to enter room due to isolation precautions. It is recorded that pt has been consuming 75-100% of meals. There are no previous weights in chart. Will continue to monitor. Current Diet: cardiac diet Malnutrition Evaluation (01/05/20) -Unable to fully assess due to isolation precautions. Will re-evaluate at follow-up as appropriate. Diet Education Needs Assessment: RD is available for diet education as needed Nutrition Care Level: low Signed: Charlene Frank, RD, LD
--- NOTE | 2020-01-05 15:53 | NUR ---
VITAL SIGNS: The patient is afebrile. The blood pressure is 99/60, saturation is 98%. The pulse is 103. The respiratory rate is 32. HEENT: No facial swelling or erythema. CARDIAC: Regular rate and rhythm with normal S1, S2. LUNGS: Auscultation of lungs reveals rhonchorous breath sounds bilaterally. There is no wheezing. ABDOMEN: Soft, nontender. There is no rebound or guarding. EXTREMITIES: No leg edema or calf tenderness. There is no cyanosis or clubbing. SKIN: No rashes. NEUROLOGICAL: No focal abnormalities. LABORATORY DATA: The white blood cell count is 10.7 and hemoglobin is 12.6. The platelet count is 432. The BUN to creatinine ratio is normal. The other electrolytes are within normal limits. The albumin is 2.5. [id number]
--- NOTE | 2020-01-05 18:15 | Progress Note ---
DATE: SUBJECTIVE: This is day #6 of admission. I have called his daughter. We talked over the phone in front of the patient. The patient is still weak, but doing okay and there is really no new complaint. He is still on Vapotherm. OBJECTIVE: VITAL SIGNS: Stable, afebrile. HEENT: Normocephalic. NECK: Supple. CHEST: Crackles bilateral. COR: S1-S2. ABDOMEN: Soft, bowel sounds present. EXTREMITIES: No edema. SKIN: No rash. IMPRESSION AND PLAN: coronavirus disease-19, respiratory failure, and nephrolithiasis. The patient to finish his course of dexamethasone. He is currently on Lovenox. He is currently not on any antibiotic. Continue with supportive care. Discussed with the patient. Discussed with his daughter who translated for him also. MD SHAILESH Velasco/MODL /[id number]
[2020-01-05] MEDS: GUAIFENESIN 600MG/DEXTROMETHORPHAN 30MG TABSR PO SCH ×2 (18:40→20:45)
[2020-01-05] MEDS: SIMVASTATIN 20 MG TAB PO SCH (20:45)
[2020-01-05] MEDS: DEXAMETHASONE SOD PHOS INJ 4 MG/ML VIAL IV SCH (20:45)
[2020-01-06] VITALS (19 sets, daily range): BP systolic 89–119; BP diastolic 54–74
[2020-01-06] MEDS: FAMOTIDINE 20 MG TAB PO SCH ×2 (07:39→17:13)
[2020-01-06] MEDS: VALSARTAN 80 MG TAB PO SCH (07:40)
[2020-01-06] MEDS: ASCORBIC ACID 500 MG TAB PO SCH ×2 (07:41→17:13)
[2020-01-06] MEDS: CHOLECALCIFEROL 400 UNIT TAB PO SCH (07:41)
[2020-01-06] MEDS: GUAIFENESIN 600MG/DEXTROMETHORPHAN 30MG TABSR PO SCH ×2 (07:41→21:00)
[2020-01-06] MEDS: ENOXAPARIN SOD INJ 40 MG/0.4 ML SYR SC SCH ×2 (07:41→21:00)
[2020-01-06] MEDS: ZINC SULFATE 220 MG CAP PO SCH ×2 (07:41→17:13)
[2020-01-06] MEDS ORDERED: VALSARTAN 160 MG TAB PO SCH (09:00)
[2020-01-06] MEDS ORDERED: SENNOSIDES 8.6 MG TAB PO SCH (17:00)
--- NOTE | 2020-01-06 17:50 | Progress Note ---
DATE: SUBJECTIVE: Mr. Osborn remains in intensive care unit. He is comfortable. PHYSICAL EXAMINATION: GENERAL: He is currently alert. VITAL SIGNS: Stable, afebrile. HEENT: He is not icteric. NECK: Supple. CHEST: Clear. HEART: S1, S2. ABDOMEN: Soft. IMPRESSION: Coronavirus disease 2019, respiratory failure. Continue as ordered. PLAN: He seems to be a little bit better. Continue oxygen as needed. MD SAHILESH Velasco/MODL /[id number]
--- NOTE | 2020-01-06 18:24 | Progress Note ---
DATE: SUBJECTIVE: The patient is afebrile. He is requiring Vapotherm and the FiO2 is 85% with 40 L. PHYSICAL EXAMINATION: VITAL SIGNS: The patient is afebrile. The vital signs are stable. HEENT: Shows no facial swelling or erythema. CARDIAC: Reveals regular rate and rhythm with a normal S1, S2. LUNGS: Auscultation of lungs reveals rhonchorous breath sounds bilaterally. There is no wheezing. ABDOMEN: Soft, nontender. There is no rebound or guarding. EXTREMITIES: Shows no leg edema or calf tenderness. There is no cyanosis or clubbing. SKIN: Shows no rashes. NEUROLOGICAL: Shows no focal abnormalities. LABORATORY DATA: White blood cell count is 10.7, hemoglobin is 12.6. The platelet count is 432. IMPRESSION: 1. Viral pneumonia and COVID-19 infection. 2. Nephrolithiasis. 3. Hematuria. 4. Acute respiratory failure. PLAN: 1. Continue to wean Vapotherm. 2. Continue Lovenox. 3. Continue dexamethasone. 4. Complete antibiotics. Wilbur Barker MD [facility]/MODL /[id number]
[2020-01-06] MEDS: DEXAMETHASONE SOD PHOS INJ 4 MG/ML VIAL IV SCH (20:00)
[2020-01-07] VITALS (18 sets, daily range): BP systolic 80–121; BP diastolic 54–88
[2020-01-07] MEDS: SIMVASTATIN 20 MG TAB PO SCH ×2 (00:23→20:03)
[2020-01-07 05:28] LABS: BASOPHILS % 0.1 % (0.0-1.0); HEMATOCRIT 42.1 % (38.2-49.6); HEMOGLOBIN 13.4 g/dL (14.0-18.0); LYMPHOCYTES # (AUTO) 0.5 (1.0-3.2); MEAN CORPUSCULAR HEMOGLOBIN 28.3 pg (28-32); MEAN CORPUSCULAR HGB CONC 31.8 g/dL (31-35); MONOCYTES # (AUTO) 0.4 (0.2-0.8); NEUTROPHILS # (AUTO) 12.3 (2.1-6.9); NEUTROPHILS % 91.8 % (38.7-80.0); PLATELET COUNT 507 x10e3/uL (140-360); RED BLOOD COUNT 4.73 x10e6/uL (4.3-5.7); RED CELL DISTRIBUTION WIDTH 12.4 % (11.7-14.4)
[2020-01-07 05:46] LABS: ALANINE AMINOTRANSFERASE 31 IU/L (0-55); ALBUMIN 2.7 g/dL (3.5-5.0); ALBUMIN/GLOBULIN RATIO 0.6 (0.8-2.0); ALKALINE PHOSPHATASE 85 IU/L (40-150); ANION GAP 13.3 mmol/L (8-16); BLOOD UREA NITROGEN 26 mg/dL (7-26); BUN/CREATININE RATIO 38 (6-25); CARBON DIOXIDE 22 mmol/L (22-29); CHLORIDE 103 mmol/L (98-107); CREATININE, SERUM 0.68 mg/dL (0.72-1.25); EST GLOMERULAR FILTRATION RATE > 60 ML/MIN (60-); GLUCOSE 116 mg/dL (74-118); POTASSIUM 4.3 mmol/L (3.5-5.1); SODIUM 134 mmol/L (136-145)
--- NOTE | 2020-01-07 06:32 | Diagnostic Imaging Report ---
EXAMINATION: CHEST SINGLE (PORTABLE) INDICATION: Respiratory failure. COVID-19. COMPARISON: Chest radiograph 01-04-2020. FINDINGS: TUBES and LINES: None. LUNGS/PLEURA: Redemonstration of bilateral multifocal patchy airspace consolidation, right greater than left, not significantly changed. There is no pleural effusion or pneumothorax. HEART AND MEDIASTINUM: The cardiomediastinal silhouette is unremarkable. BONES AND SOFT TISSUES: No acute osseous lesion. Soft tissues are unremarkable. UPPER ABDOMEN: No free air under the diaphragm. IMPRESSION: No significant interval change in bilateral multifocal pneumonia. Signed by: Dr. Casandra Austin M.D. on 01/07/2020 6:29 AM
[2020-01-07] MEDS: VALSARTAN 80 MG TAB PO SCH (09:00)
[2020-01-07] MEDS: FAMOTIDINE 20 MG TAB PO SCH ×2 (09:37→18:34)
[2020-01-07] MEDS: GUAIFENESIN 600MG/DEXTROMETHORPHAN 30MG TABSR PO SCH ×2 (09:37→20:03)
[2020-01-07] MEDS: ENOXAPARIN SOD INJ 40 MG/0.4 ML SYR SC SCH ×2 (09:37→20:03)
[2020-01-07] MEDS: CHOLECALCIFEROL 400 UNIT TAB PO SCH (09:37)
[2020-01-07] MEDS: ZINC SULFATE 220 MG CAP PO SCH ×2 (09:37→18:34)
[2020-01-07] MEDS: ASCORBIC ACID 500 MG TAB PO SCH ×2 (09:37→18:34)
--- NOTE | 2020-01-07 12:36 | Progress Note ---
DATE: Pulmonary Critical Care Progress Note SUBJECTIVE: The patient has been switched to Vapotherm to a non-rebreather. He is saturating in the high 90s. His respiratory rate is within normal limits. His blood pressure is normal. PHYSICAL EXAMINATION: VITAL SIGNS: Blood pressure is 102/64 and the pulse is 58. HEENT: No facial swelling or erythema. CARDIAC: Regular rate and rhythm with a normal S1, S2. LUNGS: Auscultation of lungs reveals crackles at the bases. There is no wheezing. ABDOMEN: Soft, nontender. There is no rebound or guarding. EXTREMITIES: No leg edema or calf tenderness. LABORATORY DATA: White blood cell count is 13.4, hemoglobin is 13.5, and platelet count is 507. BUN to creatinine ratio is normal. Other electrolytes are within normal limits. RADIOGRAPHIC DATA: Chest x-ray shows bilateral infiltrates. IMPRESSION: 1. Acute respiratory failure. 2. Viral pneumonia and coronavirus disease-19 infection. 3. Nephrolithiasis. 4. Hematuria. PLAN: 1. Continue to wean oxygen. 2. Complete dexamethasone. 3. Complete antibiotics. 4. Continue Lovenox. Wilbur Barker MD [facility]/MODL /[id number]
--- NOTE | 2020-01-07 13:15 | NUR ---
The patient has been switched to Vapotherm to a non-rebreather. He is saturating in the high 90s. His respiratory rate is within normal limits. His blood pressure is normal. PHYSICAL EXAMINATION: VITAL SIGNS: Blood pressure is 102/64 and the pulse is 58. HEENT: No facial swelling or erythema. CARDIAC: Regular rate and rhythm with a normal S1, S2. LUNGS: Auscultation of lungs reveals crackles at the bases. There is no wheezing. ABDOMEN: Soft, nontender. There is no rebound or guarding. EXTREMITIES: No leg edema or calf tenderness. LABORATORY DATA: White blood cell count is 13.4, hemoglobin is 13.5, and platelet count is 507. BUN to creatinine ratio is normal. Other electrolytes are within normal limits. RADIOGRAPHIC DATA: Chest x-ray shows bilateral infiltrates. IMPRESSION: 1. Acute respiratory failure. 2. Viral pneumonia and coronavirus disease-19 infection. 3. Nephrolithiasis. 4. Hematuria. [id number]
--- NOTE | 2020-01-07 14:32 | Progress Note ---
DATE: SUBJECTIVE: Mr. Osborn seems to be doing okay. However, he remains on high oxygen demand. He is on Vapotherm and non-rebreather. PHYSICAL EXAMINATION: GENERAL: He is currently comfortable. VITAL SIGNS: Stable. HEENT: He is not icteric. NECK: Supple. CHEST: Few crackles bilateral. HEART: S1 and S2. No murmur. ABDOMEN: Soft. IMPRESSION: COVID-19 respiratory failure. PLAN: To continue with supportive care as ordered for now. Wean him as tolerated. Clinically, seems to be doing good but discussed with medical team and discussed with intensive care. MD SHAILESH Velasco/MODL /[id number]
[2020-01-07] MEDS: DEXAMETHASONE SOD PHOS INJ 4 MG/ML VIAL IV SCH (20:03)
[2020-01-08] VITALS (25 sets, daily range): BP systolic 89–118; BP diastolic 37–94
[2020-01-08 05:20] LABS: BASOPHILS % 0.1 % (0.0-1.0); HEMATOCRIT 39.1 % (38.2-49.6); HEMOGLOBIN 13.5 g/dL (14.0-18.0); LYMPHOCYTES # (AUTO) 0.6 (1.0-3.2); LYMPHOCYTES % 3.6 % (18.0-39.1); MEAN CORPUSCULAR HEMOGLOBIN 32.1 pg (28-32); MEAN CORPUSCULAR HGB CONC 34.5 g/dL (31-35); MEAN CORPUSCULAR VOLUME 92.9 fL (81-99); MONOCYTES # (AUTO) 0.6 (0.2-0.8); MONOCYTES % 3.4 % (4.4-11.3); NEUTROPHILS # (AUTO) 14.9 (2.1-6.9); NEUTROPHILS % 92.1 % (38.7-80.0); PLATELET COUNT 364 x10e3/uL (140-360); RED BLOOD COUNT 4.21 x10e6/uL (4.3-5.7); RED CELL DISTRIBUTION WIDTH 14.1 % (11.7-14.4)
[2020-01-08 05:40] LABS: ANION GAP 14.5 mmol/L (8-16); BLOOD UREA NITROGEN 22 mg/dL (7-26); BUN/CREATININE RATIO 35 (6-25); CALCIUM 8.8 mg/dL (8.4-10.2); CARBON DIOXIDE 23 mmol/L (22-29); CHLORIDE 101 mmol/L (98-107); CREATININE, SERUM 0.63 mg/dL (0.72-1.25); EST GLOMERULAR FILTRATION RATE > 60 ML/MIN (60-); GLUCOSE 106 mg/dL (74-118); PHOSPHORUS 3.7 MG/DL (2.3-4.7); POTASSIUM 4.5 mmol/L (3.5-5.1); SODIUM 134 mmol/L (136-145)
[2020-01-08 07:41] LABS: LYMPHOCYTES % (MANUAL) 2 % (19-48); MONOCYTES % (MANUAL) 6 % (3.4-9.0); MYELOCYTES % (MANUAL) 1 % (0-0); NEUTROPHILS % (MANUAL) 91 % (40-74); PLATELET ESTIMATE SLIGHTLY INCREASED; RBC MORPHOLOGY COMMENT NORMAL
[2020-01-08 07:42] LABS: PLATELET MORPHOLOGY COMMENT FEW EDTA CLUMPING
[2020-01-08] MEDS: FAMOTIDINE 20 MG TAB PO SCH ×2 (08:32→17:01)
[2020-01-08] MEDS: ASCORBIC ACID 500 MG TAB PO SCH ×2 (08:33→17:01)
[2020-01-08] MEDS: ENOXAPARIN SOD INJ 40 MG/0.4 ML SYR SC SCH ×2 (08:33→21:35)
[2020-01-08] MEDS: VALSARTAN 80 MG TAB PO SCH (08:33)
[2020-01-08] MEDS: GUAIFENESIN 600MG/DEXTROMETHORPHAN 30MG TABSR PO SCH ×2 (08:33→21:34)
[2020-01-08] MEDS: ZINC SULFATE 220 MG CAP PO SCH ×2 (08:33→17:01)
[2020-01-08] MEDS: CHOLECALCIFEROL 400 UNIT TAB PO SCH (08:33)
[2020-01-08] MEDS ORDERED: LACTATED RINGER'S 500 ML INJ ONE (10:30)
--- NOTE | 2020-01-08 11:03 | Progress Note ---
DATE: SUBJECTIVE: The patient has no new complaints. His oxygen is down 70%, but he remains on 40 L on the Vapotherm. PHYSICAL EXAMINATION: VITAL SIGNS: The patient is afebrile. Vital signs are stable. HEENT: Shows no facial swelling or erythema. LYMPHATIC: Examination is normal. CARDIAC: Reveals regular rate and rhythm with normal S1 and S2. LUNGS: Auscultation of lungs reveals crackles at the bases. There is no wheezing. ABDOMEN: Soft and nontender. There is no rebound or guarding. EXTREMITIES: Shows no leg edema or calf tenderness. There is no cyanosis or clubbing. SKIN: Shows no rashes. NEUROLOGICAL: Shows no focal abnormalities. LABORATORY DATA: White blood cell count is 16.1 and hemoglobin is 13.5. The platelet count is 364. BUN to creatinine ratio is normal. The other electrolytes are within normal limits. The albumin is 2.7. RADIOGRAPHIC DATA: Shows bilateral multifocal pneumonia. IMPRESSION: 1. Acute respiratory failure. 2. Viral pneumonia and COVID-19 infection. 3. Nephrolithiasis. 4. Hematuria. PLAN: 1. Continue to wean Vapotherm as tolerated. 2. Complete antibiotics. 3. Continue Lovenox. 4. Judicious use of IV fluids. MD VIOLA Huitron/[facility] /[id number]
--- NOTE | 2020-01-08 13:50 | NUR ---
he patient was in the supine position briefly yesterday, but had to be placed back in the prone position. He now in a prone position and is on 65% FiO2 with a PRVC mode of ventilation at a rate of 32. The tidal volume of 370. His PEEP is set at 14. His peak airway pressure is 42 and his mean pressure is 25. PHYSICAL EXAMINATION: VITAL SIGNS: The blood pressure is 170/80, heart rate is 105 to 115. HEENT: No facial swelling. He has an oral endotracheal tube. He has a PICC line and arterial line. LUNGS: He has crackles at the bases. HEART: He has a regular rate and rhythm with normal S1, S2. ABDOMEN: Mildly distended. : He has scrotal edema. EXTREMITIES: He also has peripheral leg edema. LABORATORY DATA: White blood cell count is 4.96, hemoglobin 7.3, and the platelet count is 182. BUN to creatinine ratio is 9 to 0.5, and the potassium is 3.4. Other electrolytes are within normal limits. RADIOGRAPHIC DATA: Chest x-ray shows bilateral infiltrates. [id number]
--- NOTE | 2020-01-08 16:39 | Progress Note ---
DATE: SUBJECTIVE: Mr. Osborn remains short of breath, remains in intensive care unit, still looks comfortable, he is on 70% Vapotherm. OBJECTIVE: HEENT: Normocephalic. NECK: Supple. CHEST: Few crackles. COR: S1, S2. ABDOMEN: Soft. Bowel sounds. EXTREMITIES: No edema. IMPRESSION AND PLAN: Respiratory failure, coronavirus disease-19. Continue with the Voltaren. Continue with anticoagulation. Discussed with medical team. Discussed with critical care. We will follow. MD SHAILESH Velasco/MODL /[id number]
[2020-01-08] MEDS: ACETAMINOPHEN 325 MG TAB PO PRN (17:10)
[2020-01-08] MEDS: DEXAMETHASONE SOD PHOS INJ 4 MG/ML VIAL IV SCH (21:25)
[2020-01-08] MEDS: SIMVASTATIN 20 MG TAB PO SCH (21:35)
[2020-01-09] VITALS (20 sets, daily range): BP systolic 84–116; BP diastolic 54–82
[2020-01-09 05:35] LABS: BASOPHILS % 0.1 % (0.0-1.0); HEMATOCRIT 40.1 % (38.2-49.6); HEMOGLOBIN 13.3 g/dL (14.0-18.0); LYMPHOCYTES # (AUTO) 0.5 (1.0-3.2); LYMPHOCYTES % 3.4 % (18.0-39.1); MEAN CORPUSCULAR HEMOGLOBIN 29.9 pg (28-32); MEAN CORPUSCULAR HGB CONC 33.2 g/dL (31-35); MEAN CORPUSCULAR VOLUME 90.1 fL (81-99); MONOCYTES # (AUTO) 0.3 (0.2-0.8); MONOCYTES % 2.3 % (4.4-11.3); NEUTROPHILS # (AUTO) 12.5 (2.1-6.9); NEUTROPHILS % 93.3 % (38.7-80.0); PLATELET COUNT 392 x10e3/uL (140-360); RED BLOOD COUNT 4.45 x10e6/uL (4.3-5.7); RED CELL DISTRIBUTION WIDTH 12.6 % (11.7-14.4)
[2020-01-09 06:12] LABS: ANION GAP 15.6 mmol/L (8-16); BLOOD UREA NITROGEN 19 mg/dL (7-26); BUN/CREATININE RATIO 32 (6-25); CALCIUM 8.8 mg/dL (8.4-10.2); CARBON DIOXIDE 21 mmol/L (22-29); CHLORIDE 101 mmol/L (98-107); CREATININE, SERUM 0.59 mg/dL (0.72-1.25); EST GLOMERULAR FILTRATION RATE > 60 ML/MIN (60-); GLUCOSE 114 mg/dL (74-118); POTASSIUM 4.6 mmol/L (3.5-5.1); SODIUM 133 mmol/L (136-145)
[2020-01-09 08:29] LABS: LYMPHOCYTES % (MANUAL) 4 % (19-48); MONOCYTES % (MANUAL) 3 % (3.4-9.0); NEUTROPHILS % (MANUAL) 93 % (40-74); PLATELET ESTIMATE SLIGHTLY INCREASED; PLATELET MORPHOLOGY COMMENT NORMAL; RBC MORPHOLOGY COMMENT NORMAL
[2020-01-09] MEDS: VALSARTAN 80 MG TAB PO SCH (09:00)
[2020-01-09] MEDS: FAMOTIDINE 20 MG TAB PO SCH ×2 (09:02→16:42)
[2020-01-09] MEDS: GUAIFENESIN 600MG/DEXTROMETHORPHAN 30MG TABSR PO SCH ×2 (09:03→21:16)
[2020-01-09] MEDS: ENOXAPARIN SOD INJ 40 MG/0.4 ML SYR SC SCH (09:03)
[2020-01-09] MEDS: CHOLECALCIFEROL 400 UNIT TAB PO SCH (09:03)
[2020-01-09] MEDS: ZINC SULFATE 220 MG CAP PO SCH ×2 (09:03→16:42)
[2020-01-09] MEDS: ASCORBIC ACID 500 MG TAB PO SCH ×2 (09:03→16:42)
--- NOTE | 2020-01-09 09:55 | NUR ---
ASSESSMENT: Spiritual concern Child'S Nurse called pt's daughter, Amber, to provide emotional/spiritual support. Pt's daughter states they are "seeing progress" and the family is "hopeful" concerning his recovery. Pt's daughter is thankful for nurses who she describes as "so great." Pt's daughter states they are praying that he "gets out soon" and they are "staying strong" for her dad. Intervention: Provided empathic, supporting listening. Provided information on how to reach color control operator, if needed. Outcome: Pt's daughter expressed appreciation for call and is open to followup calls. Will follow as able. DARCIE BONDS Child'S Nurse Spiritual Care Department O: [phone]
--- NOTE | 2020-01-09 16:04 | Progress Note ---
DATE: 01/04/2020 SUBJECTIVE: Yesterday, the patient was on high-flow oxygen at 4 L/minute, humidified via nasal cannula with non-rebreather mask and today he has worsening oxygen saturations. He has been transferred from room 181 IM to [facility] ICU bed 19. OBJECTIVE: VITAL SIGNS: Temperature 97.9, heart rate 76, blood pressure 89/61, respirations 18, and oxygen saturation 92%. GENERAL: Supine. Not prone. LUNGS: With bibasilar crackles. Currently, on Vapotherm 40 L/minute, FiO2 of 100% with non-rebreather mask. HEENT: EOMI. NECK: Supple. No JVD. CARDIOVASCULAR: Regular rate and rhythm. No murmur. ABDOMEN: Bowel sounds positive. Soft, nontender. No guarding. EXTREMITIES: Without pitting edema. No clubbing, cyanosis, or marked swelling. NEUROLOGICAL: GCS 14-15. Nonfocal. LABORATORY DATA: WBCs 11.03, hemoglobin 12.1, hematocrit 37.6, and platelets 459. Sodium 136, potassium 5.1, chloride 106, CO2 of 20, BUN 22, creatinine 0.68, glucose 118, and estimated GFR greater than 60. Calcium 8.6, total bilirubin 0.6, AST 19, ALT 45, alkaline phosphatase 80, total protein 6.8, and albumin 2.3. Fingerstick blood glucose levels 103, 112. Blood cultures x2 show no growth, collected on 12/29. Chest x-ray today showed bilateral airspace opacities, increasing on the right, compatible with viral pneumonia. ASSESSMENT AND PLAN: 1. Coronavirus disease-19 pneumonia with acute respiratory distress syndrome, present on admission. Per Infectious Disease, the antibiotics, azithromycin and Rocephin will be stopped today. Continue Lovenox, zinc sulfate, vitamin C, vitamin D, dexamethasone 6 mg daily as well as antitussives and expectorant medications. 2. Hypotension with underlying history of hypertension. The patient has been on valsartan 160 mg daily. Right now, blood pressure on the low side. Monitor closely. 3. Transaminitis secondary to coronavirus disease-19 pneumonia. LFTs within normal limits. Monitor. 4. Nephrolithiasis. Urology following. If and when second COVID is negative, Urology plans to order a hematuria protocol CT. 5. Hyperlipidemia, on Zocor. 6. Prophylaxis. Lovenox and Pepcid. Billing code [id number]. Time spent 35 minutes. Dictated by Giovanni Zaragoza, FLATWORK FINISHER HAND MD ISIDRO Castillo/CARLOSL /[id number]
--- NOTE | 2020-01-09 16:39 | Progress Note ---
DATE: 01/05/2020 DATE OF SERVICE: January 05, 2020. CONSULTING PHYSICIANS: 1. Dr. Brian Ahn with Infectious Disease. 2. Dr. Ryan Del Rio with Urology. 3. Dr. Wilbur Barker with Pulmonology Critical Care Medicine. SUBJECTIVE: The patient has a persistent cough. At the time of encounter, heart rate 61, oxygen saturation 99%. No acute distress. Remains in [facility] ICU bed 19. OBJECTIVE: VITAL SIGNS: Temperature 97.6, heart rate 55, blood pressure 96/56, respirations 23, and oxygen saturation 98%. GENERAL: Supine. Not prone. LUNGS: With bibasilar crackles. Vapotherm 40 L/minute, FiO2 of 100% on non-rebreather mask. HEENT: EOMI. NECK: Supple. CARDIOVASCULAR: Regular rate and rhythm. No murmur. ABDOMEN: Bowel sounds present. Soft, nontender. No guarding. EXTREMITIES: No pitting edema. No clubbing, cyanosis, or marked swelling or signs of DVT. NEUROLOGICAL: GCS 15, nonfocal. LABORATORY DATA: Sodium 137, potassium 4.4, chloride 104, CO2 of 23, anion gap 14.4, BUN 24, creatinine 0.66, estimated GFR greater than 60, glucose 99, calcium 9, total bilirubin 0.6, AST 15, ALT 39, alkaline phosphatase 80, total protein 6.9, and albumin 2.5. WBCs 10.75, RBC 4.21, hemoglobin 12.6, and platelet 432. IMAGING DATA: No new chest x-ray results. Echocardiogram done on 01/03 showed left ventricular ejection fraction of 65% to 70% with impaired relaxation, normal left ventricular filling pressures. No significant valvular abnormalities. ASSESSMENT AND PLAN: 1. Coronavirus disease-19 pneumonia with acute respiratory failure, present on admission. Antibiotics were stopped by Infectious Disease. Continue dexamethasone, Lovenox, zinc sulfate, vitamin C, vitamin D, guaifenesin with codeine, Tessalon Perles, and albuterol HFA. 2. Hypotension with underlying history of hypertension. Continue valsartan 160 mg daily and p.r.n. IV hydralazine for systolic blood pressure greater than 150. Monitor blood pressure closely. 3. Nephrolithiasis. Urology following. Appreciate recommendations. 4. Transaminitis secondary to coronavirus disease-19. LFTs are improving. Today, total bilirubin 0.6, AST 15, ALT 39, and alkaline phosphatase 80. Transaminitis hopefully resolved. We will continue to monitor. 5. Hyperlipidemia. Zocor. 6. Asymptomatic bradycardia. Monitor. 7. Prophylaxis. Lovenox and Pepcid. Billing code [id number]. Time spent 35 minutes. Dictated by Giovanni Zaragoza, COMPETITIVE INTELLIGENCE MANAGER MD ANDREW CastilloP/MODL /[id number]
--- NOTE | 2020-01-09 18:29 | Progress Note ---
DATE: 01/06/2020 DATE OF SERVICE: January 06, 2020 SUBJECTIVE: The patient remains in COVID ICU bed 19. No new complaints, still with a cough, shortness of breath, dyspnea on exertion. He had a large BM today. He is on a cardiac diet. OBJECTIVE: VITAL SIGNS: Temperature 97.5, heart rate 58, blood pressure 98/69, respirations 18, and oxygen saturation 96%. GENERAL: Supine, not prone. LUNGS: Bibasilar crackles. Vapotherm 40 L/minute, FiO2 of 85% as well as non-rebreather mask, oxygen saturation 99% at the time of encounter. HEENT: EOMI. NECK: Supple. No JVD. CARDIOVASCULAR: Regular rate and rhythm without murmur. ABDOMEN: Bowel sounds positive. Soft, nontender. No guarding. EXTREMITIES: Without pitting edema. No clubbing, cyanosis, or marked swelling. NEUROLOGIC: GCS 15, nonfocal. LABORATORY DATA: Fingerstick blood glucose levels 76, 90. No growth from blood cultures collected on 12/29. Coronavirus PCR was negative on 12/29, but detected on 12/31. ASSESSMENT/PLAN: 1. COVID-19 pneumonia with acute respiratory failure, present on admission. Continue Lovenox, dexamethasone, vitamin D, vitamin C, Tessalon Perles, guaifenesin with codeine, and albuterol HFA. Vapotherm remains at 4 L/minute; however, we were able to wean the FiO2 from 100% to 85%. 2. Hypotension with underlying history of hypertension. Per echo, ejection fraction was 65% to 70%. Continue valsartan 160 mg daily along with p.r.n. IV hydralazine. Monitor blood pressure closely. 3. Nephrolithiasis. Urology following. 4. Hyperlipidemia, on Zocor. 5. Asymptomatic bradycardia. Monitor. 6. Prophylaxis. Lovenox and Pepcid. BILLING CODE: [id number]. TIME SPENT: Thirty-five minutes. Dictated by Giovanni Zaragoza NP Terry Lozoya MD [facility]/MODL /[id number]
--- NOTE | 2020-01-09 18:29 | Progress Note ---
DATE: 01/07/2020 DATE OF SERVICE: January 07, 2020 SUBJECTIVE: The patient is supine in bed. According to the nurse at the bedside no new issues. He remains in COVID ICU, bed 19. Still tolerating cardiac diet well, had a large BM yesterday. OBJECTIVE: VITAL SIGNS: Temperature 97.9, heart rate 56, blood pressure 93/54, respirations 18, and oxygen saturation 98%. GENERAL: Supine. Not prone. LUNGS: Bibasilar crackles. Vapotherm 40 L/minute. FiO2 of 80% along with a non-rebreather mask with oxygen saturation 97%. At the time of encounter, blood pressure 93/59. HEENT: EOMI. NECK: Supple. No JVD. CARDIOVASCULAR: Regular rate and rhythm. No murmur. ABDOMEN: Bowel sounds positive. Soft, nontender. EXTREMITIES: No pitting edema. No clubbing, cyanosis, or marked swelling. NEUROLOGICAL: GCS 15. Nonfocal. LABORATORY DATA: WBCs 13.45, hemoglobin 13.4, hematocrit 42.1, platelets 507, neutrophils 91.8%. Sodium 134, potassium 4.3, chloride 103, CO2 22, anion gap 13.3, BUN 26, creatinine 0.68, estimated GFR greater than 60, glucose 116, calcium 9, total bilirubin 0.9, AST 11, ALT 31, alkaline phosphatase 85, total protein 6.9, albumin 2.7. IMAGING: Chest x-ray today showed no significant interval change and bilateral multifocal pneumonia. ASSESSMENT AND PLAN: 1. Multifocal COVID-19 pneumonia with acute respiratory failure, present on admission. IV antibiotics have been discontinued. Complete dexamethasone. Continue Lovenox, zinc sulfate, vitamin D, vitamin C, antitussives and expectorant medications. Continue albuterol HFA, very gradual wean FiO2 decreased from 85 to 80% since yesterday. 2. Hypotension with underlying history of hypertension. Continue Diovan 160 mg p.o. daily along with p.r.n. IV hydralazine for systolic blood pressure greater than 150. 3. Nephrolithiasis. Urology following. 4. Hyperlipidemia, on Zocor. 5. Asymptomatic bradycardia. Monitor closely. 6. Prophylaxis. Lovenox and Pepcid. Billing code [id number]. Time spent 35 minutes. . Dictated by Giovanni Zaragoza NP MD ISIDRO Castillo/SEAN /[id number]
--- NOTE | 2020-01-09 18:44 | Progress Note ---
DATE: 01/08/2020 DATE OF SERVICE: January 08, 2020. SUBJECTIVE: The patient still has a persistent cough. He is urinating well, eating well at 1900, blood pressure 95/70. No apparent distress. Remains in [facility] ICU bed 19. OBJECTIVE: VITAL SIGNS: Temperature 97.9, heart rate 61, blood pressure 109/69, respirations 18, and oxygen saturation 98%. GENERAL: Supine, head of bed elevated. LUNGS: With bibasilar crackles. He has been switched from Vapotherm to Airvo 20 L/minute along with non-rebreather mask, FiO2 of 100%, and oxygen saturation was 93% at time of encounter. HEENT: EOMI. NECK: Supple. No JVD. CARDIOVASCULAR: Regular rate and rhythm. No murmur. ABDOMEN: Bowel sounds positive. Soft, nontender. EXTREMITIES: Without pitting edema. No clubbing, cyanosis, or signs of DVT. NEUROLOGIC: GCS 15. LABORATORY DATA: WBC 16.14, hemoglobin 13.5, hematocrit 39.1, platelets 364. Sodium 134, potassium 4.5, chloride 101, CO2 23, anion gap 14.5, BUN 22, creatinine 0.63, estimated GFR greater than 60, glucose 106, calcium 8.8, phosphorus 3.7, magnesium 2.0. Blood cultures x2 has show no growth after 5 days. This is a final report and blood cultures were collected on 12/29. No new imaging results. ASSESSMENT AND PLAN: 1. Multifocal coronavirus disease-19 pneumonia with acute respiratory failure, present on admission, Rocephin and azithromycin were discontinued. Complete dexamethasone, continue Lovenox, vitamin C, vitamin D, guaifenesin with codeine and Tessalon Perles as well as albuterol HFA. Continue weaning of oxygen as per Pulmonology Critical Care Medicine. 2. Controlled hypertension. Continue valsartan 160 mg daily along with p.r.n. IV hydralazine. Ejection fraction 65% to 70%. 3. Nephrolithiasis. Urology following. No donald hematuria. Appreciate recs. 4. Thrombocytopenia. Platelets 364 (507). Monitor closely. Leukocytosis noted with WBCs 16.1 (13.45). 5. Mild hyponatremia, sodium 134. Monitor. 6. Asymptomatic bradycardia. Monitor heart rate. 7. Prophylaxis. Lovenox and Pepcid. Billing code [id number]. Time spent 35 minutes. Dictated by Giovanni Zaragoza, CAR REPAIRER MD ISIDRO Castillo/CARLOSL /[id number]
--- NOTE | 2020-01-09 19:40 | Progress Note ---
DATE: SUBJECTIVE: Mr. Osborn is doing about the same, still short of breath. PHYSICAL EXAMINATION: GENERAL: Comfortable. VITAL SIGNS: Stable, currently afebrile. HEENT: He is not icteric. NECK: Supple. CHEST: Clear. HEART: S1, S2. No murmurs. ABDOMEN: Soft. Bowel sounds present. EXTREMITIES: No edema. SKIN: No rashes. IMPRESSION: Respiratory failure, COVID-19. Remains on high-flow at 35%. White count 13.35, which is down. He is on Lovenox, dexamethasone. Today, he will finish his supportive treatment. We will get a CTA to rule out pulmonary embolism and we will follow. MD SHAILESH Velasco/SEAN /[id number]
--- NOTE | 2020-01-09 20:41 | Progress Note ---
DATE: Pulmonary Critical Care Progress Note SUBJECTIVE: The patient is still on an Airvo at 65% with 30 L. He is saturating in the mid 90s. He has some cough. He has no chest pain. PHYSICAL EXAMINATION: VITAL SIGNS: The patient is afebrile. Vital signs are stable. HEENT: Shows no facial swelling or erythema. CARDIAC: Reveals regular rate and rhythm with normal S1 and S2. LUNGS: Auscultation of lungs reveals rhonchorous breath sounds bilaterally. There is no wheezing. ABDOMEN: Soft and nontender. There is no rebound or guarding. EXTREMITIES: Shows no leg edema or calf tenderness. There is no cyanosis or clubbing. SKIN: Shows no rashes. NEUROLOGICAL: Shows no focal abnormalities. IMPRESSION: 1. Acute respiratory failure. 2. Viral pneumonia and COVID-19 infection. 3. Hematuria. 4. Nephrolithiasis. PLAN: 1. Continue current oxygen settings and wean as tolerated. 2. Complete antibiotics. 3. Await CT scan of the chest with pulmonary angiogram protocol. 4. Out of bed as tolerated. Wilbur Barker MD [facility]/MODL /[id number]
[2020-01-09] MEDS: ENOXAPARIN INJ 80 MG/0.8 ML SYR SC SCH (21:16)
[2020-01-09] MEDS: DEXAMETHASONE SOD PHOS INJ 4 MG/ML VIAL IV SCH (21:16)
[2020-01-09] MEDS: SIMVASTATIN 20 MG TAB PO SCH (21:16)
[2020-01-10] VITALS (24 sets, daily range): BP systolic 88–136; BP diastolic 50–80
[2020-01-10 05:15] LABS: BASOPHILS % 0.1 % (0.0-1.0); HEMATOCRIT 40.9 % (38.2-49.6); HEMOGLOBIN 13.2 g/dL (14.0-18.0); LYMPHOCYTES # (AUTO) 0.5 (1.0-3.2); LYMPHOCYTES % 4.2 % (18.0-39.1); MEAN CORPUSCULAR HEMOGLOBIN 29.3 pg (28-32); MEAN CORPUSCULAR HGB CONC 32.3 g/dL (31-35); MEAN CORPUSCULAR VOLUME 90.9 fL (81-99); MONOCYTES # (AUTO) 0.2 (0.2-0.8); NEUTROPHILS % 92.7 % (38.7-80.0); PLATELET COUNT 415 x10e3/uL (140-360); RED CELL DISTRIBUTION WIDTH 12.5 % (11.7-14.4)
[2020-01-10 05:39] LABS: ALANINE AMINOTRANSFERASE 19 IU/L (0-55); ALBUMIN 2.5 g/dL (3.5-5.0); ALBUMIN/GLOBULIN RATIO 0.6 (0.8-2.0); ALKALINE PHOSPHATASE 69 IU/L (40-150); ANION GAP 13.5 mmol/L (8-16); BLOOD UREA NITROGEN 21 mg/dL (7-26); BUN/CREATININE RATIO 32 (6-25); CALCIUM 8.8 mg/dL (8.4-10.2); CARBON DIOXIDE 23 mmol/L (22-29); CHLORIDE 102 mmol/L (98-107); CREATININE, SERUM 0.66 mg/dL (0.72-1.25); EST GLOMERULAR FILTRATION RATE > 60 ML/MIN (60-); GLUCOSE 122 mg/dL (74-118); POTASSIUM 4.5 mmol/L (3.5-5.1); SODIUM 134 mmol/L (136-145)
[2020-01-10] MEDS: FAMOTIDINE 20 MG TAB PO SCH ×2 (08:17→16:32)
[2020-01-10] MEDS: ENOXAPARIN INJ 80 MG/0.8 ML SYR SC SCH ×2 (09:02→21:05)
[2020-01-10] MEDS: ZINC SULFATE 220 MG CAP PO SCH ×2 (09:02→16:32)
[2020-01-10] MEDS: ASCORBIC ACID 500 MG TAB PO SCH ×2 (09:02→16:32)
[2020-01-10] MEDS: GUAIFENESIN 600MG/DEXTROMETHORPHAN 30MG TABSR PO SCH ×2 (09:02→21:05)
[2020-01-10] MEDS: CHOLECALCIFEROL 400 UNIT TAB PO SCH (09:23)
[2020-01-10] MEDS: VALSARTAN 80 MG TAB PO SCH (09:23)
--- NOTE | 2020-01-10 16:29 | Progress Note ---
DATE: SUBJECTIVE: The patient is still on an Airvo at 40 L with 90% oxygen. He has less cough and less congestion. PHYSICAL EXAMINATION: VITAL SIGNS: The patient is afebrile. The blood pressure is 95/55, saturation is 98%. HEENT: Shows no facial swelling or erythema. CARDIAC: Reveals regular rate and rhythm with normal S1 and S2. LUNGS: Auscultation of lungs reveals rhonchorous breath sounds bilaterally. There is no wheezing. ABDOMEN: Soft and nontender. There is no rebound or guarding. EXTREMITIES: Shows no leg edema or calf tenderness. There is no cyanosis or clubbing. SKIN: Shows no rashes. NEUROLOGICAL: Shows no focal abnormalities. LABORATORY DATA: The white blood cell count is 11.8, hemoglobin is 13.2. The BUN to creatinine ratio is normal. The other electrolytes are within normal limits. IMPRESSION: 1. Acute respiratory failure. 2. Viral pneumonia and COVID-19 infection. 3. Hematuria. 4. Hypertension. PLAN: 1. Continue Lovenox. 2. The patient has completed dexamethasone. 3. Continue Airvo. 4. CT scan of chest. 5. Rescue inhaler as needed. Wilbur Barker MD [facility]/SEAN /[id number]
--- NOTE | 2020-01-10 19:25 | Progress Note ---
DATE: SUBJECTIVE: Mr. Osborn remains in the hospital, day #11. No new complaint. He is on Revo 40 L with 90%, slowly better. PHYSICAL EXAMINATION: GENERAL: Alert. VITAL SIGNS: Stable, afebrile. HEENT: He is not icteric. NECK: Supple. CHEST: Crackles. HEART: S1, S2. ABDOMEN: Soft. IMPRESSION AND PLAN: Respiratory failure, coronavirus disease-19. Continue as ordered. We will follow. Discussed with medical team. MD SHAILESH Velasco/MODL /[id number]
[2020-01-10] MEDS: SIMVASTATIN 20 MG TAB PO SCH (21:05)
[2020-01-11] VITALS (24 sets, daily range): BP systolic 82–121; BP diastolic 29–85
[2020-01-11 05:03] LABS: BASOPHILS % 0.1 % (0.0-1.0); EOSINOPHILS % 0.3 % (0.0-6.0); HEMATOCRIT 38.3 % (38.2-49.6); HEMOGLOBIN 12.4 g/dL (14.0-18.0); LYMPHOCYTES # (AUTO) 1.6 (1.0-3.2); LYMPHOCYTES % 11.4 % (18.0-39.1); MEAN CORPUSCULAR HEMOGLOBIN 29.2 pg (28-32); MEAN CORPUSCULAR HGB CONC 32.4 g/dL (31-35); MEAN CORPUSCULAR VOLUME 90.1 fL (81-99); MONOCYTES % 7.3 % (4.4-11.3); NEUTROPHILS # (AUTO) 11.1 (2.1-6.9); NEUTROPHILS % 80.1 % (38.7-80.0); PLATELET COUNT 390 x10e3/uL (140-360); RED BLOOD COUNT 4.25 x10e6/uL (4.3-5.7); RED CELL DISTRIBUTION WIDTH 12.7 % (11.7-14.4)
[2020-01-11 05:24] LABS: ALANINE AMINOTRANSFERASE 22 IU/L (0-55); ALBUMIN 2.4 g/dL (3.5-5.0); ALBUMIN/GLOBULIN RATIO 0.6 (0.8-2.0); ALKALINE PHOSPHATASE 70 IU/L (40-150); ANION GAP 13.2 mmol/L (8-16); BLOOD UREA NITROGEN 25 mg/dL (7-26); BUN/CREATININE RATIO 38 (6-25); CALCIUM 8.6 mg/dL (8.4-10.2); CARBON DIOXIDE 23 mmol/L (22-29); CHLORIDE 104 mmol/L (98-107); CREATININE, SERUM 0.65 mg/dL (0.72-1.25); EST GLOMERULAR FILTRATION RATE > 60 ML/MIN (60-); GLUCOSE 81 mg/dL (74-118); POTASSIUM 4.2 mmol/L (3.5-5.1); SODIUM 136 mmol/L (136-145)
[2020-01-11] MEDS: FAMOTIDINE 20 MG TAB PO SCH ×2 (10:41→17:38)
[2020-01-11] MEDS: GUAIFENESIN 600MG/DEXTROMETHORPHAN 30MG TABSR PO SCH ×2 (10:41→21:00)
[2020-01-11] MEDS: ZINC SULFATE 220 MG CAP PO SCH ×2 (10:41→17:38)
[2020-01-11] MEDS: CHOLECALCIFEROL 400 UNIT TAB PO SCH (10:41)
[2020-01-11] MEDS: ASCORBIC ACID 500 MG TAB PO SCH ×2 (10:41→17:38)
[2020-01-11] MEDS: ENOXAPARIN INJ 80 MG/0.8 ML SYR SC SCH ×2 (10:41→21:00)
[2020-01-11] MEDS: VALSARTAN 80 MG TAB PO SCH (10:41)
--- NOTE | 2020-01-11 10:49 | Diagnostic Imaging Report ---
X-ray chest AP portable Comparison: 01/04/2020 History: Covid pneumonia Findings: Central airways unremarkable. Heart size borderline. No definite pleural effusion. No pneumothorax. Bilateral lung infiltrates of interstitial and airspace type in a patchy distribution and more diffuse compared with the previous exam. No acute changes in the visualized skeleton. Upper abdomen unremarkable. Impression: The pulmonary infiltrates appears to be more diffusely distributed compared with the prior exam. Signed by: Lior Bean MD on 01/11/2020 10:46 AM
--- NOTE | 2020-01-11 16:15 | Progress Note ---
DATE: SUBJECTIVE: The patient is afebrile. He remains on Airvo. PHYSICAL EXAMINATION: VITAL SIGNS: The blood pressure is 107/76, saturation is 98%. The pulse is 84. HEENT: No facial swelling or erythema. CARDIAC: Regular rate and rhythm with normal S1, S2. LUNGS: Auscultation of lungs reveals crackles at the bases. There is no wheezing. ABDOMEN: Soft, nontender. There is no rebound or guarding. EXTREMITIES: No leg edema or calf tenderness. There is no cyanosis or clubbing. SKIN: No rashes. NEUROLOGICAL: No focal abnormalities. LABORATORY DATA: White blood cell count is 13.8, hemoglobin is 12.4. The platelet count is 390. BUN to creatinine ratio is normal. Other electrolytes are within normal limits and the albumin is 2.4. RADIOGRAPHIC DATA: Chest x-ray shows bilateral pulmonary infiltrates. IMPRESSION: 1. Acute respiratory failure. 2. Viral pneumonia and coronavirus disease-19 infection. 3. Hematuria. 4. Hypertension. PLAN: 1. Continue current antimicrobial therapy. 2. Wean Airvo as tolerated. 3. Continue Lovenox. 4. Continue current antihypertensive regimen. Wilbur Barker MD [facility]/MODL /[id number]
[2020-01-11] MEDS: SIMVASTATIN 20 MG TAB PO SCH (21:00)
--- NOTE | 2020-01-11 23:32 | Progress Note ---
DATE: SUBJECTIVE: Mr. Osborn remains in the intensive care unit. He remains on Airvo. OBJECTIVE: VITAL SIGNS: Afebrile. HEENT: He is not icteric. NECK: Supple. CHEST: Clear. HEART: S1, S2. ABDOMEN: Soft. IMPRESSION: 1. Respiratory failure. 2. Viral pneumonia. 3. Coronavirus disease 2019. PLAN: 1. Continue supportive care. 2. Continue to wean oxygen as needed. 3. Discussed with the medical team. MD SHAILESH Velasco/MODL /[id number]
[2020-01-12] VITALS (18 sets, daily range): BP systolic 90–122; BP diastolic 57–97
[2020-01-12 03:54] LABS: BASOPHILS % 0.1 % (0.0-1.0); EOSINOPHILS # (AUTO) 0.1 (0.0-0.4); EOSINOPHILS % 0.9 % (0.0-6.0); HEMATOCRIT 34.1 % (38.2-49.6); LYMPHOCYTES % 20.4 % (18.0-39.1); MEAN CORPUSCULAR HEMOGLOBIN 29.4 pg (28-32); MEAN CORPUSCULAR HGB CONC 32.3 g/dL (31-35); MEAN CORPUSCULAR VOLUME 91.2 fL (81-99); MONOCYTES # (AUTO) 0.9 (0.2-0.8); MONOCYTES % 8.7 % (4.4-11.3); NEUTROPHILS # (AUTO) 6.9 (2.1-6.9); NEUTROPHILS % 69.2 % (38.7-80.0); PLATELET COUNT 328 x10e3/uL (140-360); RED BLOOD COUNT 3.74 x10e6/uL (4.3-5.7); RED CELL DISTRIBUTION WIDTH 12.9 % (11.7-14.4)
[2020-01-12 04:14] LABS: ALANINE AMINOTRANSFERASE 17 IU/L (0-55); ALBUMIN 2.2 g/dL (3.5-5.0); ALBUMIN/GLOBULIN RATIO 0.7 (0.8-2.0); ALKALINE PHOSPHATASE 62 IU/L (40-150); ANION GAP 10.5 mmol/L (8-16); BLOOD UREA NITROGEN 20 mg/dL (7-26); BUN/CREATININE RATIO 32 (6-25); CALCIUM 7.3 mg/dL (8.4-10.2); CARBON DIOXIDE 22 mmol/L (22-29); CHLORIDE 109 mmol/L (98-107); CREATININE, SERUM 0.62 mg/dL (0.72-1.25); EST GLOMERULAR FILTRATION RATE > 60 ML/MIN (60-); GLUCOSE 68 mg/dL (74-118); POTASSIUM 3.5 mmol/L (3.5-5.1); SODIUM 138 mmol/L (136-145)
[2020-01-12] MEDS: VALSARTAN 80 MG TAB PO SCH (09:00)
[2020-01-12] MEDS: ZINC SULFATE 220 MG CAP PO SCH ×2 (09:12→17:05)
[2020-01-12] MEDS: ASCORBIC ACID 500 MG TAB PO SCH ×2 (09:12→17:05)
[2020-01-12] MEDS: GUAIFENESIN 600MG/DEXTROMETHORPHAN 30MG TABSR PO SCH ×2 (09:12→21:09)
[2020-01-12] MEDS: FAMOTIDINE 20 MG TAB PO SCH ×2 (09:12→17:05)
[2020-01-12] MEDS: CHOLECALCIFEROL 400 UNIT TAB PO SCH (09:12)
[2020-01-12] MEDS: ENOXAPARIN INJ 80 MG/0.8 ML SYR SC SCH ×2 (09:12→21:09)
--- NOTE | 2020-01-12 09:53 | Progress Note ---
DATE: SUBJECTIVE: The patient is afebrile. He is in the prone position now. He remains on an Airvo and his liter flow has been decreased. PHYSICAL EXAMINATION: VITAL SIGNS: Blood pressure is 100/77, saturation is 99%, and the pulse is 66. Respiratory rate is in the low 20s. HEENT: Shows no facial swelling or erythema. CARDIAC: Reveals regular rate and rhythm with normal S1 and S2. LUNGS: Auscultation of lungs reveals crackles at the bases. There is no wheezing. ABDOMEN: Soft and nontender. LABORATORY DATA: White blood cell count is 9.9 and hemoglobin is 11. The platelet count is 323. The BUN to creatinine ratio is 20 to 0.62. The albumin is 2.2. IMPRESSION: 1. Acute respiratory failure. 2. Viral pneumonia and COVID-19 infection. 3. Hematuria. 4. Hypertension. PLAN: 1. Continue current antibiotics. 2. Wean Airvo as tolerated. 3. Continue Lovenox. 4. Continue to monitor blood pressure. Wilbur Barker MD [facility]/MODL /[id number]
--- NOTE | 2020-01-12 11:58 | NUR ---
Thermospray Operator called pt's daughter, Amber, for follow up. Pt's daughter family is receiving "updates about his progress" She states they are patiently "waiting for him to get stronger" and "we are ready to have him back home." Thermospray Operator provided empathic listening and pastoral support. Will continue to follow as able. DARCIE Sotelo [facility] Department O: [phone]
--- OUTSIDE RECORDS SUMMARY | 2020-01-12 13:08 | XMS REPORT | Clinical Summary ---
Author Author [facility] Address Unknown Phone Unavailable Care Team Providers Care Biosolids Management Technician Name Role Phone Asked, No Pcp PCP Unavailable Allergies Comments Active Allergy Reactions Severity Noted Date Hydrocodone-Acetaminophen 04/07/2016 Medications No known medications Active Problems Not on file Social History Date Tobacco Use Types Packs/Day Years Used Never Smoker Drinks/Week oz/Week Comments Alcohol Use Yes Sex Assigned at Date Recorded Not on file Industry Job Start Date Occupation Not on file Not on file Not on file Travel End Travel History Travel Start No recent travel history available. Last Filed Vital Signs Not on file Plan of Treatment Health Maintenance Due Date Last Done Comments COLONOSCOPY SCREENING 2012 SHINGLES VACCINES (#1) 2012 INFLUENZA VACCINE 01/13/2020 Results Not on fileafter 12/29/2018 Insurance Type Payer Benefit Subscriber ID Effective Phone Address Plan / Dates Group PPO BCBS ANTHEM xxxxxxxxxxxx [id number] BLUE CROSS resent Advance Directives For more information, please contact: [phone] Patient Machine Tech Explanation Type Date Recorded Advance Directives, Living Will and Medical Power of Military Personnel Specialist
--- OUTSIDE RECORDS SUMMARY | 2020-01-12 13:24 | XMS REPORT | Clinical Summary ---
Author Author [facility] [employer] [facility] Address Unknown Phone Unavailable Care Team Providers Care Template Inspector Name Role Phone Asked, No Pcp PCP [...] Advance Directives For more information, please contact: [phone] Patient Public Address System Operator Explanation Type Date Recorded Advance Directives, Living Will and Medical Power of Disability Advocate
--- OUTSIDE RECORDS SUMMARY | 2020-01-12 13:24 | XMS REPORT | Continuity of Care Document ---
Author Author [facility] Organization [facility] Address [facility] Krishan Carpio [address] [place] [id number] Phone Unavailable Care Team Providers Care Director Advanced Name Role Phone Asked, Pcp No PCP Unavailable MARY MCKEON Attphys Unavailable MARY MCKEON Admsupa Unavailable Problems This patient has no known problems. Allergies, Adverse Reactions, Alerts Allergy Name Allergy Type Status Severity Reaction(s) Onset Date Inacti ve Date Treating Clinician Comments Source Hydrocodone-Acetaminophen Propensity to adverse reactions to drug Act cris 2016-04-07 00:00:00 [place] [facility] odist Social History Social Habit Start Date Stop Date Quantity Comments Source Sex Assigned At Shantel dueñas [place] J Alcohol intake 2016-04-07 00:00:00 2016-04-07 00:00:00 Current drinker of alcohol (finding) [place] J Smoking Status Start Date Stop Date Source Never smoker [place] Medications This patient has no known medications. Procedures This patient has no known procedures. Plan of Care Planned Activity Planned Date Details Comments Source Future Scheduled Test 2020-01-13 00:00:00 INFLUENZA VACCINE [code = INFLUENZA VACCINE] [facility] Future Scheduled Test 2012 00:00:00 COLONOSCOPY SCREEN ING [code = COLONOSCOPY SCREENING] [facility] Future Scheduled Test 2012 00:00:00 SHINGLES VACCINES (#1) [code = SHINGLES VACCINES (#1)] [facility] Results Test Description Test Time Test Comments Results Result Comments Source CHEST SINGLE (PORTABLE) 2020-01-11 10:44:00 [facility] [address] [place] [address] Patient Name: ZACH OSBORN MR #: [id number] : 1960 Age/Sex: 59/M Req #: [id number] Adm Physician: MARY MCKEON MD Ordered by: Radha Sanchez DAIRY AND FOOD LABORATORY ASSISTANT Report #: [id number] Location: [facility] Room/Bed: [place] [address] Procedure: [id number] DX/CHEST SINGLE (PORTABLE) Exam Date: 01/11/20 Exam Time: 924 REPORT STATUS: Signed X-ray chest AP portable Comparison: 01/04/2020 History: Covid pneumonia Findings: Central airways unremarkable. Heart size borderline. No definite pleural effusion. No pneumothorax. Bilateral lung infiltrates of interstitial and airspace type in a patchy distribution and more diffuse compared with the previous exam. No acute changes in the visualized skeleton. Upper abdomen unremarkable. Impression: The pulmonary infiltrates appears to be more diffusely distributed compared with the prior exam. Signed by: Lior Steel MD on 01/11/2020 10:46 AM Dictated By: LIOR STEEL MD 1046 Transcribed By: ABIOLA on 01/11/20 1046 COPY TO: RADHA SANCHEZ DAIRY AND FOOD LABORATORY ASSISTANT CHEST SINGLE (PORTABLE) 2020-01-07 06:26:00 [place] [address] Patient Name: ZACH OSBORN MR #: [id number] : 1960 Age/Sex: 59/M Req #: [id number] Adm Physician: MARY MCKEON MD Ordered by: WENDY LOPEZ MD Report #: [id number] Location: [facility] Room/Bed: [place] [address] Procedure: [id number] DX/CHEST SINGLE (PORTABLE) Exam Date: 01/07/20 Exam Time: 0545 REPORT STATUS: Signed EXAMINATION: CHEST SINGLE (PORTABLE) INDICATION: Respiratory failure. COVID-19. COMPARISON: Chest radiograph 01-04-2020. FINDINGS: TUBES and LINES: None. LUNGS/PLEURA: Redemonstration of bilateral multifocal patchy airspace consolidation, right greater than left, not significantly changed. There is no pleural effusion or pneumothorax. HEART AND MEDIASTINUM: The cardiomediastinal silhouette is unremarkable. BONES AND SOFT TISSUES: No acute osseous lesion. Soft tissues are unremarkable. UPPER ABDOMEN: No free air under the diaphragm. IMPRESSION: No significant interval change in bilateral multifocal pneumonia. Signed by: Dr. Casandra Elizondo M.D. on 01/07/2020 6:29 AM Dictated By: TODD ELIZONDO MD, MD 8 Transcribed By: ABIOLA on 01/07/20628 COPY TO: WENDY LOPEZ MD CHEST SINGLE (PORTABLE) 2020-01-04 07:04:00 [place] [address] Patient Name: ZACH OSBORN MR #: [id number] : 1960 Age/Sex: 59/M Req #: [id number] Adm Physician: MARY MCKEON MD Ordered by: WENDY LOPEZ MD Report #: [id number] Location: [facility] Room/Bed: [place] [address] Procedure: DX/CHEST SINGLE (PORTABLE) Exam Date: 01/04/20 Exam Time: 0540 REPORT STATUS: Signed EXAMINATION: CHEST SINGLE (PORTABLE) INDICATION:resp failure COMPARISON: Chest radiograph 01-02-2020. FINDINGS: AP view TUBES and LINES: None. LUNGS/PLEURA: Lungs are well inflated. Bilateral peripheral and basilar predominant patchy airspace opacities, increasing on the right. There is no pleural effusion or pneumothorax. HEART AND MEDIASTINUM: The cardiomediastinal silhouette is unremarkable. BONES AND SOFT TISSUES: No acute osseous lesion. Soft tissues are unremarkable. UPPER ABDOMEN: No free air under the diaphragm. IMPRESSION: Bilateral airspace opacities, increasing on the right, compatible with viral pneumonia. Signed by: Dr. Valerie Rios MD on 01/04/2020 7:07 AM Dictated By: VALERIE RIOS MD 6 Transcribed By: ABIOLA on 01/04/20706 COPY TO: WENDY LOPEZ MD CHEST SINGLE (PORTABLE) 2020-01-02 07:39:00 [place] [address] Patient Name: ZACH OSBORN MR #: [id number] : 1960 Age/Sex: 59/M Req #: [id number] Adm Physician: MARY MCKEON MD Ordered by: Radha Sanchez DAIRY AND FOOD LABORATORY ASSISTANT Report #: [id number] Location: [facility] Room/Bed: [place] [address] Procedure: DX/CHEST SINGLE (PORTABLE) Exam Date: 01/02/20 Exam Time: 0645 REPORT STATUS: Signed EXAMINATION: CHEST SINGLE (PORTABLE) INDICATION: COVID COMPARISON: Chest radiograph 12-30-2019. FINDINGS: AP view TUBES and LINES: None. LUNGS/PLEURA: Lungs are well inflated. There are increasing bilateral peripheral predominant patchy airspace opacities. There is no pleural effusion or pneumothorax. HEART AND MEDIASTINUM: The cardiomediastinal silhouette is unremarkable. BONES AND SOFT TISSUES: No acute osseous lesion. Soft tissues are unremarkable. UPPER ABDOMEN: No free air under the diaphragm. IMPRESSION: Increasing bilateral patchy opacities, compatible with viral pneumonia. Signed by: Dr. Valerie Rios MD on 01/02/2020 7:40 AM Dictated By: VALERIE RIOS MD 9 Transcribed By: ABIOLA on 01/02/20739 COPY TO: RADHA SANCEHZ NP CHEST SINGLE (PORTABLE) 2019-12-30 18:12:00 [place] [address] Patient Name: ZACH OSBORN MR #: [id number] : 1960 Age/Sex: 59/M Req #: [id number] Adm Physician: Ordered by: VENKATA BIGGS MD Report #: [id number] Location: ER Room/Bed: Procedure: [id number] DX/CHEST SINGLE (PORTABLE) Exam Date: 12/30/19 Exam Time: 1740 REPORT STATUS: Signed EXAMINATION: CHEST SINGLE (PORTABLE) INDICATION: sob, cough, hypoxia COMPARISON: None FINDINGS: AP view TUBES and LINES: None. LUNGS/PLEURA: Lungs are well inflated. There are bilateral patchy opacities likely representing multifocal pneumonia. There is no pleural effusion or pneumothorax. HEART AND MEDIASTINUM: The cardiomediastinal silhouette is unremarkable. BONES AND SOFT TISSUES: No acute osseous lesion. Soft tissues are unremarkable. UPPER ABDOMEN: No free air under the diaphragm. IMPRESSION: Bilateral patchy opacities likely representing multifocal pneumonia. Signed by: Preet Joaquin MD on 12/30/2019 6:15 PM Dictated By: PREET JOAQUIN MD 14 Transcribed By: ABIOLA on 12/30/191814 COPY TO: VENKATA BIGGS MD
--- NOTE | 2020-01-12 16:15 | NUR ---
Nutrition Screen Note RD Recommendation for Physician: -Continue current diet as ordered -If PO intake is <50% of meals, offer Ensure compact Plan of Care: RD following, monitoring for tolerance and adequacy Nutrition reason for involvement: follow up Primary Diagnose(s): COVID-19, hypoxemia, and viral pneumonia PMH: Hypertension, Hyperlipidemia, right hip surgery, Urolithiasis, Obesity Ht: 67 in Wt:200 lb BMI: 31.3 kg/m2 IBW:[address] Assessment: 01/11: Follow up. Chart reviewed. Last recorded meal intake was 75% on 01/07. Pt was proned today per chart. Will continue to monitor. (01/05/20) Chart reviewed. Labs and meds reviewed. Pt is a 59 year old male admitted with COVID-19, hypoxemia, and viral pneumonia. Unable to enter room due to isolation precautions. It is recorded that pt has been consuming 75-100% of meals. There are no previous weights in chart. Will continue to monitor. Current Diet: cardiac diet Malnutrition Evaluation (01/05/20) -Unable to fully assess due to isolation precautions. Will re-evaluate at follow-up as appropriate. Diet Education Needs Assessment: RD is available for diet education as needed Nutrition Care Level: low Signed: Charlene Frank, RD, LD
--- NOTE | 2020-01-12 16:45 | NUR ---
progress note infectiouse disease seen and examined he patient is afebrile. He is in the prone position now. He remains on an Airvo and his liter flow has been decreased. PHYSICAL EXAMINATION: VITAL SIGNS: Blood pressure is 100/77, saturation is 99%, and the pulse is 66. Respiratory rate is in the low 20s. HEENT: Shows no facial swelling or erythema. CARDIAC: Reveals regular rate and rhythm with normal S1 and S2. LUNGS: Auscultation of lungs reveals crackles at the bases. There is no wheezing. ABDOMEN: Soft and nontender. LABORATORY DATA: White blood cell count is 9.9 and hemoglobin is 11. The platelet count is 323. The BUN to creatinine ratio is 20 to 0.62. The albumin is 2.2. IMPRESSION: 1. Acute respiratory failure. 2. Viral pneumonia and COVID-19 infection. 3. Hematuria. 4. Hypertension. cont supportive care will follow
[2020-01-12] MEDS: SIMVASTATIN 20 MG TAB PO SCH (21:09)
[2020-01-13] VITALS (24 sets, daily range): BP systolic 91–123; BP diastolic 41–98
[2020-01-13 05:35] LABS: BASOPHILS % 0.3 % (0.0-1.0); EOSINOPHILS # (AUTO) 0.1 (0.0-0.4); EOSINOPHILS % 1.3 % (0.0-6.0); HEMATOCRIT 38.6 % (38.2-49.6); HEMOGLOBIN 12.3 g/dL (14.0-18.0); LYMPHOCYTES % 21.3 % (18.0-39.1); MEAN CORPUSCULAR HEMOGLOBIN 28.6 pg (28-32); MEAN CORPUSCULAR HGB CONC 31.9 g/dL (31-35); MEAN CORPUSCULAR VOLUME 89.8 fL (81-99); MONOCYTES % 10.7 % (4.4-11.3); NEUTROPHILS # (AUTO) 6.2 (2.1-6.9); NEUTROPHILS % 65.7 % (38.7-80.0); PLATELET COUNT 333 x10e3/uL (140-360); RED CELL DISTRIBUTION WIDTH 12.9 % (11.7-14.4)
[2020-01-13 06:03] LABS: ALANINE AMINOTRANSFERASE 30 IU/L (0-55); ALBUMIN 2.5 g/dL (3.5-5.0); ALBUMIN/GLOBULIN RATIO 0.7 (0.8-2.0); ALKALINE PHOSPHATASE 71 IU/L (40-150); ANION GAP 9.9 mmol/L (8-16); BLOOD UREA NITROGEN 17 mg/dL (7-26); BUN/CREATININE RATIO 24 (6-25); CALCIUM 8.6 mg/dL (8.4-10.2); CARBON DIOXIDE 25 mmol/L (22-29); CHLORIDE 104 mmol/L (98-107); EST GLOMERULAR FILTRATION RATE > 60 ML/MIN (60-); GLUCOSE 72 mg/dL (74-118); POTASSIUM 3.9 mmol/L (3.5-5.1); SODIUM 135 mmol/L (136-145)
[2020-01-13] MEDS: FAMOTIDINE 20 MG TAB PO SCH ×2 (07:51→17:06)
[2020-01-13] MEDS: ASCORBIC ACID 500 MG TAB PO SCH ×2 (08:07→17:06)
[2020-01-13] MEDS: GUAIFENESIN 600MG/DEXTROMETHORPHAN 30MG TABSR PO SCH ×2 (08:07→20:18)
[2020-01-13] MEDS: ZINC SULFATE 220 MG CAP PO SCH ×2 (08:07→17:06)
[2020-01-13] MEDS: ENOXAPARIN INJ 80 MG/0.8 ML SYR SC SCH ×2 (08:07→20:18)
[2020-01-13] MEDS: CHOLECALCIFEROL 400 UNIT TAB PO SCH (08:07)
--- NOTE | 2020-01-13 16:44 | Progress Note ---
DATE: SUBJECTIVE: The patient is afebrile. He still has some dyspnea with standing or with walking. PHYSICAL EXAMINATION: VITAL SIGNS: The patient is afebrile. The blood pressure is 108/95, saturation is 93%. He is on an Airvo to 45 L with 50% oxygen. HEENT: No facial swelling or erythema. LYMPHATIC: No submandibular, cervical, or supraclavicular adenopathy. CARDIAC: Regular rhythm with normal S1, S2. LUNGS: Auscultation of lungs reveals rhonchorous breath sounds bilaterally. There is no wheezing. ABDOMEN: Soft, nontender. There is no rebound or guarding. EXTREMITIES: No leg edema or calf tenderness. There is no cyanosis or clubbing. SKIN: No rashes. NEUROLOGICAL: No focal abnormalities. LABORATORY DATA: White blood cell count 9.4 and hemoglobin is 12.3. The platelet count is 333. BUN to creatinine ratio is normal. Other electrolytes are normal and the albumin is 2.5. IMPRESSION: 1. Acute respiratory failure. 2. Viral pneumonia and coronavirus disease-19 infection. 3. Hematuria. 4. Hypertension. PLAN: 1. Continue to wean Airvo as tolerated. 2. Complete current antibiotics. 3. Lovenox. 4. Continue to monitor blood pressures. Wilbur Barker MD LM/CARLOSL /[id number]
--- NOTE | 2020-01-13 19:40 | Progress Note ---
DATE: SUBJECTIVE: Mr. Osborn remains in intensive care unit. He is doing well, extremely short of breath, but overall improving. OBJECTIVE: VITAL SIGNS: Stable, afebrile. HEENT: He is not icteric. NECK: Supple. CHEST: Crackles. HEART: S1, S2. ABDOMEN: Soft. IMPRESSION: Coronavirus disease-19 respiratory failure, very slow progress. Hypertension. Continue to wean Airvo as tolerated. He is currently on Lovenox. Off antibiotic, but stable. Discussed with the patient. Discussed with medical team. MD SHAILESH Velasco/MODL /[id number]
[2020-01-13] MEDS: SIMVASTATIN 20 MG TAB PO SCH (20:18)
--- NOTE | 2020-01-13 23:53 | NUR ---
PATIENT TRANSFERRING TO ROOM 188.REPORT GIVEN TO NURSE AT 2320, ALL QUESTIONS ANSWERED. PATIENT MADE AWARE AND AGREEABLE TO TRANSFER. PATIENT BROUGHT OVER TO ROOM 188 AT 2340 BY RESOURCE NURSE AND RT VIA WHEELCHAIR. ALL BELONGINGS BROUGHT WITH PATIENT.
[2020-01-14] VITALS (7 sets, daily range): BP systolic 102–142; BP diastolic 66–98
--- NOTE | 2020-01-14 00:35 | NUR ---
Received pt as transfer from ICU Covid unit via w/c accompanied by staff. Pt a/o x4, mostly rwandan speaking, able to make needs known to staff. Assisted to bed, Vapotherm connected per resp. No s/sx of acute distress noted, pt has no c/o. Prod cough noted, pt states, not observed by this staff. Pt encouraged to use call button for nurse assistance, verbalized understanding. Bed in low and locked position, personal items within reach. Will med per AUG and cont to wed.
[2020-01-14] MEDS: BENZONATATE 100 MG CAP PO PRN (01:08)
[2020-01-14 08:04] LABS: BASOPHILS % 0.4 % (0.0-1.0); EOSINOPHILS # (AUTO) 0.1 (0.0-0.4); HEMATOCRIT 39.9 % (38.2-49.6); HEMOGLOBIN 12.9 g/dL (14.0-18.0); LYMPHOCYTES # (AUTO) 1.8 (1.0-3.2); LYMPHOCYTES % 25.8 % (18.0-39.1); MEAN CORPUSCULAR HEMOGLOBIN 29.2 pg (28-32); MEAN CORPUSCULAR HGB CONC 32.3 g/dL (31-35); MEAN CORPUSCULAR VOLUME 90.3 fL (81-99); MONOCYTES # (AUTO) 0.7 (0.2-0.8); MONOCYTES % 10.3 % (4.4-11.3); NEUTROPHILS # (AUTO) 4.2 (2.1-6.9); NEUTROPHILS % 60.5 % (38.7-80.0); PLATELET COUNT 291 x10e3/uL (140-360); RED BLOOD COUNT 4.42 x10e6/uL (4.3-5.7); RED CELL DISTRIBUTION WIDTH 12.7 % (11.7-14.4)
[2020-01-14 08:28] LABS: ALANINE AMINOTRANSFERASE 53 IU/L (0-55); ALBUMIN 2.6 g/dL (3.5-5.0); ALBUMIN/GLOBULIN RATIO 0.7 (0.8-2.0); ALKALINE PHOSPHATASE 69 IU/L (40-150); ANION GAP 10.8 mmol/L (8-16); BLOOD UREA NITROGEN 16 mg/dL (7-26); BUN/CREATININE RATIO 26 (6-25); CALCIUM 8.7 mg/dL (8.4-10.2); CARBON DIOXIDE 25 mmol/L (22-29); CHLORIDE 105 mmol/L (98-107); CREATININE, SERUM 0.61 mg/dL (0.72-1.25); EST GLOMERULAR FILTRATION RATE > 60 ML/MIN (60-); GLUCOSE 79 mg/dL (74-118); POTASSIUM 3.8 mmol/L (3.5-5.1); SODIUM 137 mmol/L (136-145)
[2020-01-14] MEDS: ENOXAPARIN INJ 80 MG/0.8 ML SYR SC SCH ×2 (09:55→20:31)
[2020-01-14] MEDS: ZINC SULFATE 220 MG CAP PO SCH ×2 (09:55→17:22)
[2020-01-14] MEDS: ASCORBIC ACID 500 MG TAB PO SCH ×2 (09:55→17:22)
[2020-01-14] MEDS: CHOLECALCIFEROL 400 UNIT TAB PO SCH (09:56)
[2020-01-14] MEDS: GUAIFENESIN 600MG/DEXTROMETHORPHAN 30MG TABSR PO SCH ×2 (09:57→20:31)
[2020-01-14] MEDS: FAMOTIDINE 20 MG TAB PO SCH ×2 (09:57→17:22)
--- NOTE | 2020-01-14 13:26 | NUR ---
INFECTIOUS DISEASE PROGRESS NOTE DR MCLEOD SUBJECTIVE: Mr. Osborn remains in intensive care unit. He is doing well, extremely short of breath, but overall improving. PHYSICAL EXAM OBJECTIVE: VITAL SIGNS: Stable, afebrile. HEENT: He is not icteric. NECK: Supple. CHEST: Crackles. HEART: S1, S2. ABDOMEN: Soft. LABS: REVIEWED RADIOLOGY: REVIEWED IMPRESSION: Coronavirus disease-19 respiratory failure Hypertension. PLAN Continue to wean oxygen as tolerated. He is currently on Lovenox. Off antibiotic, but stable. Discussed with the patient. Discussed with medical team. PT SEEN AND EVALUATED BY DR. MCLEOD
[2020-01-14] MEDS: SIMVASTATIN 20 MG TAB PO SCH (20:31)
[2020-01-15] VITALS (7 sets, daily range): BP systolic 13–155; BP diastolic 66–99
[2020-01-15 05:39] LABS: BASOPHILS % 0.5 % (0.0-1.0); EOSINOPHILS # (AUTO) 0.1 (0.0-0.4); EOSINOPHILS % 2.2 % (0.0-6.0); HEMOGLOBIN 12.6 g/dL (14.0-18.0); LYMPHOCYTES # (AUTO) 2.1 (1.0-3.2); LYMPHOCYTES % 32.1 % (18.0-39.1); MEAN CORPUSCULAR HEMOGLOBIN 31.3 pg (28-32); MEAN CORPUSCULAR HGB CONC 34.1 g/dL (31-35); MONOCYTES # (AUTO) 0.7 (0.2-0.8); MONOCYTES % 10.6 % (4.4-11.3); NEUTROPHILS # (AUTO) 3.5 (2.1-6.9); PLATELET COUNT 225 x10e3/uL (140-360); RED BLOOD COUNT 4.02 x10e6/uL (4.3-5.7); RED CELL DISTRIBUTION WIDTH 13.2 % (11.7-14.4)
[2020-01-15 06:22] LABS: ALANINE AMINOTRANSFERASE 65 IU/L (0-55); ALBUMIN 2.8 g/dL (3.5-5.0); ALBUMIN/GLOBULIN RATIO 0.7 (0.8-2.0); ALKALINE PHOSPHATASE 67 IU/L (40-150); BLOOD UREA NITROGEN 18 mg/dL (7-26); BUN/CREATININE RATIO 26 (6-25); CALCIUM 8.7 mg/dL (8.4-10.2); CARBON DIOXIDE 23 mmol/L (22-29); CHLORIDE 105 mmol/L (98-107); EST GLOMERULAR FILTRATION RATE > 60 ML/MIN (60-); GLUCOSE 73 mg/dL (74-118); SODIUM 136 mmol/L (136-145)
--- NOTE | 2020-01-15 07:13 | NUR ---
Handoff completed with oncoming nurse. No issues or concerns noted. Patient A&Ox3. Airvo 30L at 30%, 02 sat 99%, tolerating.
[2020-01-15] MEDS: FAMOTIDINE 20 MG TAB PO SCH ×2 (09:03→16:37)
[2020-01-15] MEDS: CHOLECALCIFEROL 400 UNIT TAB PO SCH (09:04)
[2020-01-15] MEDS: ZINC SULFATE 220 MG CAP PO SCH ×2 (09:04→16:37)
[2020-01-15] MEDS: ASCORBIC ACID 500 MG TAB PO SCH ×2 (09:04→16:37)
[2020-01-15] MEDS: GUAIFENESIN 600MG/DEXTROMETHORPHAN 30MG TABSR PO SCH ×2 (09:04→21:12)
[2020-01-15] MEDS: ENOXAPARIN INJ 80 MG/0.8 ML SYR SC SCH ×2 (09:04→21:12)
--- NOTE | 2020-01-15 16:41 | NUR ---
INFECTIOUS DISEASE PROGRESS NOTE DR MCLEOD seen and examined labs seen markos reviewed discussed with medical team SUBJECTIVE: Mr. Osborn remains in intensive care unit. He is doing well, extremely short of breath, but overall improving. PHYSICAL EXAM OBJECTIVE: VITAL SIGNS: Stable, afebrile. HEENT: He is not icteric. NECK: Supple. CHEST: Crackles. HEART: S1, S2. ABDOMEN: Soft. LABS: REVIEWED RADIOLOGY: REVIEWED IMPRESSION: Coronavirus disease-19 respiratory failure Hypertension. off abx cont as ordered
--- NOTE | 2020-01-15 16:59 | Progress Note ---
DATE: SUBJECTIVE: The patient is transferred out of intensive care unit. He is now on nasal cannula at 6 L. PHYSICAL EXAMINATION: VITAL SIGNS: Blood pressure is 155/66 and pulse is 64. HEENT: Shows no facial swelling or erythema. LYMPHATIC: Shows no submandibular, cervical, or supraclavicular adenopathy. CARDIAC: Reveals regular rate and rhythm with normal S1 and S2. LUNGS: Auscultation of lungs reveals rhonchorous breath sounds bilaterally. There is no wheezing. ABDOMEN: Soft and nontender. There is no rebound or guarding. EXTREMITIES: Shows no leg edema or calf tenderness. There is no cyanosis or clubbing. SKIN: Shows no rashes. NEUROLOGICAL: Shows no focal abnormalities. LABORATORY DATA: CBC is within normal limits. BUN to creatinine ratio is normal. Other electrolytes within normal limits and albumin is 2.8. IMPRESSION: 1. Acute respiratory failure. 2. Viral pneumonia and COVID-19 infection. 3. Hypertension. PLAN: 1. Continue to wean oxygen. 2. Continue anticoagulation. 3. Complete antibiotics. Wilbur Barker MD [facility]/MODL /[id number]
[2020-01-15] MEDS: SIMVASTATIN 20 MG TAB PO SCH (21:12)
[2020-01-16] VITALS: BP 124/80
[2020-01-16 04:00] VITALS: BP 113/68
--- NOTE | 2020-01-16 07:01 | NUR ---
Handoff completed with oncoming nurse. No issues or concerns noted. Patient A&Ox3. High flow 5L NC, 02 sat 99%, tolerating.
[2020-01-16] MEDS: FAMOTIDINE 20 MG TAB PO SCH ×2 (08:05→17:15)
[2020-01-16] MEDS: GUAIFENESIN 600MG/DEXTROMETHORPHAN 30MG TABSR PO SCH ×2 (08:05→19:53)
[2020-01-16] MEDS: ENOXAPARIN INJ 80 MG/0.8 ML SYR SC SCH (08:06)
[2020-01-16] MEDS: ASCORBIC ACID 500 MG TAB PO SCH ×2 (08:06→17:15)
[2020-01-16] MEDS: CHOLECALCIFEROL 400 UNIT TAB PO SCH (08:06)
[2020-01-16] MEDS: ZINC SULFATE 220 MG CAP PO SCH ×2 (08:06→17:15)
[2020-01-16 09:01] VITALS: BP 133/94
[2020-01-16 12:31] VITALS: BP 148/98
[2020-01-16 17:16] VITALS: BP 112/79
--- NOTE | 2020-01-16 18:19 | Progress Note ---
DATE: SUBJECTIVE: Mr. Osborn is doing better. There are no new complaints. This is day #17. PHYSICAL EXAMINATION: GENERAL: He is currently alert, oriented. VITAL SIGNS: Stable, afebrile. HEENT: He is not icteric. NECK: Supple. CHEST: Crackles bilaterally. HEART: S1, S2. ABDOMEN: Soft. IMPRESSION AND PLAN: Respiratory failure, improving. Coronavirus disease-19. To wean down steroid, can be discharged home once he reaches 4 L and stable if he can afford two months of low dose of Eliquis 2.5 mg p.o. b.i.d., albuterol as needed for inhalers. The patient should be not infectious 20 days since onset of symptoms. No need to recheck PCR. MD SHAILESH Velasco/SEAN /[id number]
[2020-01-16] MEDS: SIMVASTATIN 20 MG TAB PO SCH (19:53)
[2020-01-16 20:00] VITALS: BP 129/88
[2020-01-17 00:02] VITALS: BP 123/72
[2020-01-17 04:07] VITALS: BP 118/61
[2020-01-17 06:01] LABS: BASOPHILS % 0.4 % (0.0-1.0); EOSINOPHILS # (AUTO) 0.1 (0.0-0.4); EOSINOPHILS % 2.2 % (0.0-6.0); HEMATOCRIT 36.8 % (38.2-49.6); HEMOGLOBIN 11.9 g/dL (14.0-18.0); LYMPHOCYTES # (AUTO) 1.5 (1.0-3.2); LYMPHOCYTES % 27.7 % (18.0-39.1); MEAN CORPUSCULAR HGB CONC 32.3 g/dL (31-35); MEAN CORPUSCULAR VOLUME 89.8 fL (81-99); MONOCYTES # (AUTO) 0.8 (0.2-0.8); MONOCYTES % 13.7 % (4.4-11.3); NEUTROPHILS # (AUTO) 3.1 (2.1-6.9); NEUTROPHILS % 55.5 % (38.7-80.0); PLATELET COUNT 234 x10e3/uL (140-360); RED CELL DISTRIBUTION WIDTH 12.9 % (11.7-14.4)
[2020-01-17 06:54] LABS: ALANINE AMINOTRANSFERASE 160 IU/L (0-55); ALBUMIN 2.8 g/dL (3.5-5.0); ALBUMIN/GLOBULIN RATIO 0.8 (0.8-2.0); ALKALINE PHOSPHATASE 76 IU/L (40-150); BLOOD UREA NITROGEN 16 mg/dL (7-26); BUN/CREATININE RATIO 21 (6-25); CALCIUM 8.7 mg/dL (8.4-10.2); CARBON DIOXIDE 27 mmol/L (22-29); CHLORIDE 107 mmol/L (98-107); CREATININE, SERUM 0.77 mg/dL (0.72-1.25); EST GLOMERULAR FILTRATION RATE > 60 ML/MIN (60-); GLUCOSE 76 mg/dL (74-118); SODIUM 139 mmol/L (136-145)
[2020-01-17 07:28] LABS: MAGNESIUM 1.9 MG/DL (1.3-2.1); PHOSPHORUS 3.6 MG/DL (2.3-4.7)
[2020-01-17 07:36] VITALS: BP 142/88
--- NOTE | 2020-01-17 07:45 | NUR ---
Patient evaluated for home 02 patient used urinal, oxygen decreased to 88
[2020-01-17 09:00] VITALS: BP 142/88
[2020-01-17] MEDS: ASCORBIC ACID 500 MG TAB PO SCH (10:02)
[2020-01-17] MEDS: CHOLECALCIFEROL 400 UNIT TAB PO SCH (10:02)
[2020-01-17] MEDS: GUAIFENESIN 600MG/DEXTROMETHORPHAN 30MG TABSR PO SCH (10:02)
[2020-01-17] MEDS: ZINC SULFATE 220 MG CAP PO SCH (10:06)
[2020-01-17] MEDS: FAMOTIDINE 20 MG TAB PO SCH (10:06)
[2020-01-17] MEDS ORDERED: ONDANSETRON HCL 4 MG ORAL DISINTEGRATING TAB PO PRN (10:30)
--- NOTE | 2020-01-17 11:43 | NUR ---
Notified Dr. Casandra Barker, made aware patient patient's oxygen decreased to 88 while using urinal. received orders to do another home 02 evaluation
[2020-01-17 12:00] VITALS: BP 135/80
[2020-01-17] MEDS ORDERED: ACETAMINOPHEN325 M1 PO (13:37)
[2020-01-17] MEDS ORDERED: VENTOLIN HFA18 GM INH (13:37)
[2020-01-17] MEDS ORDERED: ZINC SULFATE220 M1 PO (13:37)
[2020-01-17] MEDS ORDERED: ASCORBIC ACID500 MG PO (13:37)
[2020-01-17] MEDS ORDERED: TESSALON PERLE100 MG PO (13:37)
[2020-01-17] MEDS ORDERED: MUCINEX DM ER1 EACH PO (13:37)
[2020-01-17] MEDS ORDERED: Cholecalciferol PO (13:37)
[2020-01-17 15:37] VITALS: BP 137/70
--- NOTE | 2020-01-17 16:14 | Progress Note ---
DATE: SUBJECTIVE: Mr. Osborn remains short of breath, but he is overall feeling better. REVIEW OF SYSTEMS: Otherwise unremarkable. PHYSICAL EXAMINATION: GENERAL: He is currently alert. VITAL SIGNS: Stable, afebrile. HEENT: He is not icteric. NECK: Supple. CHEST: Crackles in the bases. IMPRESSION: Day #16, improving. Okay to discharge home with oxygen as needed, PT/OT, albuterol inhaler as needed. Anticoagulation, low dose of Eliquis 2.5 b.i.d. of 60 days. Discussed with the medical team. MD SHAILESH Velasco/SEAN /[id number]
--- NOTE | 2020-01-17 16:45 | NUR ---
Patient discharged home verbalized understanding of d/c instructions.
--- NOTE | 2020-01-18 00:15 | Discharge Summary ---
PRIMARY CARE PHYSICIAN: Dr. Julio Davis. CONSULTING PHYSICIANS: Dr. Brian Ahn with Infectious Disease, Dr. Ryan Del Rio with Urology, and Dr. Wilbur Barker with Pulmonology Critical Care Medicine. CHIEF COMPLAINT: Shortness of breath, dry cough. HISTORY OF PRESENT ILLNESS: The patient is a 59-year-old male, who admitted with complaints of shortness of breath and dry cough for a week. He was tested for COVID outpatient and was positive and his PCP told him to go to the emergency department. PAST MEDICAL HISTORY: Hypertension and hyperlipidemia. PAST SURGICAL HISTORY: Right hip surgery. FAMILY HISTORY: Diabetes mellitus in a brother. SOCIAL HISTORY: Occasional alcohol use. ALLERGIES: NO KNOWN ALLERGIES. ADMITTING DIAGNOSES: 1. Coronavirus disease 2019 pneumonia with acute respiratory distress syndrome, present on admission. 2. Hypertension. 3. Hyperlipidemia. 4. Obesity with BMI 33.2. DISCHARGE DIAGNOSES: 1. Coronavirus disease 2019 pneumonia with acute respiratory distress syndrome, improving. 2. Transaminitis. 3. Hypertension. 4. Hyperlipidemia. 5. Hematuria. LABORATORY DATA: On admission; WBCs 15.76, hemoglobin 13.4, and platelets 524. Sodium 140, potassium 4, BUN 22, creatinine 0.73, estimated GFR greater than 60. AST 47, ALT 129, alkaline phosphatase 136. Troponin I less than 0.001. B-type natriuretic peptide 76. Troponin I subsequently 0.002, 0.007, and less than 0.001. Hemoglobin A1c was 5.6% during his stay. Coronavirus PCR not detected on 12/29, but was detected on 12/31. Blood cultures x2 showed no growth after 5 days after being collected on 12/29. Initial chest x-ray on 12/29, showed bilateral patchy opacities, likely representing multifocal pneumonia. The final chest x-ray on 01/10, showed the pulmonary infiltrates appearing to be more diffusely distributed compared to the prior exam. Today on the day of discharge; WBCs 5.56, hemoglobin 11.9, hematocrit 36.8, and platelets 234. Sodium 139, potassium 4.0, chloride 107, CO2 of 27, BUN 16, creatinine 0.77, estimated GFR greater than 60, glucose 76, calcium 8.7, phosphorus 3.6, magnesium 1.9, total bilirubin 0.6, AST 80, ALT 160, alkaline phosphatase 76, total protein 6.1, albumin 2.8. The patient to follow up with Dr. Del Rio in 1 month. Follow up with PCP, Dr. Julio Davis in 20 days. Follow up with Dr. Ahn in his office in 1 month. Short-term disability and FMLA paperwork all faxed to Saundra at Dr. Lozoya's office. Case was discussed with the patient's daughter on the phone today. The patient is to continue his prescription medications, which include p.r.n. Tylenol, Ventolin HFA every 6 hours p.r.n. for shortness of breath, vitamin C 1000 mg p.o. b.i.d. for 30 days, Tessalon Perles 200 mg p.o. every 8 hours p.r.n. for cough, cholecalciferol 400 units p.o. daily for a month, Mucinex DM 1 tablet every 12 hours for a month, zinc sulfate 220 mg p.o. b.i.d. for a month. The patient's daughter also concerned about the patient having home oxygen and the home oxygen evaluation showed oxygen saturation at rest on room air 98%. Oxygen saturation being exerted on room air 93% after 7 minutes of ambulation, although the patient does not qualify for home oxygen via insurance. We will go and provide the family with a prescription for home oxygen for the patient in case he happens to need it and if they want to pay for separately. The prescription reads home oxygen p.r.n. start 2 L/minute via nasal cannula for diagnosis of COVID-19. Per the history and physical, the patient had been on 4 L/minute via nasal cannula. When I saw him yesterday, he was on humidified high-flow oxygen 2 L/minute via nasal cannula, now seems to be doing much better on room air. He had required time in the COVID ICU and had a productive cough, was requiring high-flow O2 of 5 L/minute with a non-rebreather mask on 01/02/2020 in IM. He was transferred to COVID SCU on or about 01/04/2020, due to worsening shortness of breath on 01/02. He was on humidified high-flow oxygen at 4 L/minute via nasal cannula along with non-rebreather mask, FiO2 of 100%, but his oxygen saturation worsened and he had to be placed on Vapotherm 40 L/minute and FiO2 100% along with a non-rebreather mask per Infectious Disease. Antibiotics were stopped at that time. Chest x-ray had shown increased opacities in the right lung. On 01/07, he was on AIRVO 20 L/minute along with non-rebreather mask with an oxygen saturation of 93%. The patient was transferred out of the [facility] SCU back to intermediate care unit on or about 01/14/2020. Per Dr. Del Rio's note, the patient will have hematuria and stones workup as an outpatient. Continue cardiac diet. Activity level as tolerated. Dictated by Giovanni Zaragoza NP MD ISIDRO Castillo/SEAN /[id number]
== END 2020-01-17 17:06 | disposition home or self-care (01) | DRG 177 ==
LOC: ER 16:40 → ERHOLD 21:06 → IMCU 22:51 → ICU 01-03 22:22 → COVIDICU 01-04 01:57 → IMCU 01-13 23:47
PROVIDERS: ADMIT Internal Medicine; ATTEND Internal Medicine
PROC: 8E0ZXY6 Isolation (ICD-10-PCS; principal; 2019-12-30)
DX: U07.1 COVID-19 (principal); J96.00 Acute respiratory failure, unspecified whether with hypoxia or hypercapnia; J12.9 Viral pneumonia, unspecified; N20.2 Calculus of kidney with calculus of ureter; E87.1 Hypo-osmolality and hyponatremia; I10 Essential (primary) hypertension; E78.5 Hyperlipidemia, unspecified; R31.9 Hematuria, unspecified; E83.51 Hypocalcemia; Z68.30 Body mass index [BMI] 30.0-30.9, adult; R74.0 Nonspecific elevation of levels of transaminase and lactic acid dehydrogenase [LDH]; E66.9 Obesity, unspecified; D64.9 Anemia, unspecified; R00.1 Bradycardia, unspecified; D69.6 Thrombocytopenia, unspecified
CPT/HCPCS: 36415; 71045; 80048; 80053; 81001; 82550; 82553; 82948; 83036; 83735; 83880; 84100; 84484; 85025; 85610; 85730; 87040; 93005; 93306; 97139; 99284; J0456; J0696; J1100; J1650; J7030; J7050; J7121; U0002

== ENCOUNTER → 2020-04-04 | Day surgery (SDC) | payer BC, OTHER ==
--- NOTE | 2020-04-01 12:13 | NUR ---
PER PTS , PT TESTED POSITIVE FOR COVID 01/01/20, HAS SINCE TESTED NEGATIVE. O.R AWARE SPOKE WITH CHARGE RANI SALAZAR RN. 04/01/20@ 8415.
[~2020-04-04] MED LIST: ACETAMINOPHEN325 M1 PO; ASCORBIC ACID500 MG PO; CRESTOR10 MG PO; Cholecalciferol PO; DIOVAN160 MG PO; FENTANYL CITRATE/PF 100MCG/2 ML INJ ONE; MIDAZOLAM HCL 2 MG/2 ML VIAL ONE; MUCINEX DM ER1 EACH PO; PROPOFOL IV EMULSION 10 MG/ML 20 ML VIAL ONE; TESSALON PERLE100 MG PO; VENTOLIN HFA18 GM INH; ZINC SULFATE220 M1 PO
[2020-04-04 09:40] VITALS: BP 116/80
== END | disposition home or self-care (01) ==
LOC: OR 05:46
PROVIDERS: ATTEND Internal Medicine Gastroenterology
DX: Z12.11 Encounter for screening for malignant neoplasm of colon (principal); K64.8 Other hemorrhoids; Z71.3 Dietary counseling and surveillance; I10 Essential (primary) hypertension; E66.3 Overweight; E78.00 Pure hypercholesterolemia, unspecified; N20.0 Calculus of kidney; Z88.6 Allergy status to analgesic agent; Z68.29 Body mass index [BMI] 29.0-29.9, adult; Z01.812 Encounter for preprocedural laboratory examination; Z11.59 Encounter for screening for other viral diseases
CPT/HCPCS: 45378; J2704; U0002; J2250; J3010

== ENCOUNTER 2024-05-12 19:16 | Emergency (ER) | payer BC ==
[~2024-05-12] VITALS: Ht 175.3 cm; Wt 104.3 kg
[~2024-05-12 19:16] MED LIST changes: -FENTANYL CITRATE/PF 100MCG/2 ML INJ ONE; -MIDAZOLAM HCL 2 MG/2 ML VIAL ONE; -PROPOFOL IV EMULSION 10 MG/ML 20 ML VIAL ONE
[2024-05-12 19:48] VITALS: PULSE 76; RESP 18; TEMP 95.7
[2024-05-12] MEDS ORDERED: KETOROLAC TROME10 MG PO (21:04)
[2024-05-12] MEDS ORDERED: METHOCARBAMOL750 MG PO (21:04)
[2024-05-12] MEDS: KETOROLAC TROMETHAMINE 60 MG/2 ML VIAL IM ONE (21:10)
[2024-05-12 21:19] VITALS: BP 148/77; PULSE 76; RESP 18; TEMP 96.6; O2SAT 96
== END 2024-05-12 21:19 | disposition home or self-care (01) ==
LOC: FSED 19:49
DX: M25.512 Pain in left shoulder (principal); I10 Essential (primary) hypertension; E78.5 Hyperlipidemia, unspecified; Z96.641 Presence of right artificial hip joint
CPT/HCPCS: 96372; 99282; J1885